=== PATIENT | male | born 1950 | race Caucasian/White ===

== ENCOUNTER → 2017-10-13 | Outpatient (CLI) | payer MEDICARE, BC ==
[2017-10-13 17:34] LABS: ALBUMIN/GLOBULIN RATIO 1.33 (1.00-1.93); ALKALINE PHOSPHATASE 62 U/L (45-117); ALT/SGPT 25 U/L (12-78); ANION GAP 8 MEQ/L (8-16); AST/SGOT 20 U/L (7-37); BILIRUBIN,TOTAL 1.2 MG/DL (0.2-1.0); BLOOD UREA NITROGEN 17 MG/DL (7-18); CALCIUM LEVEL 8.8 MG/DL (8.8-10.2); CARBON DIOXIDE LEVEL 27 MEQ/L (21-32); CHLORIDE LEVEL 106 MEQ/L (98-107); CHOLESTEROL LEVEL 252 MG/DL (<200); CHOLESTEROL RISK RATIO 4.271 (<5); CPK CREATINE PHOSPHOKINASE 195 U/L (39-308); CREATININE FOR GFR 0.86 MG/DL (0.70-1.30); GLOMERULAR FILTRATION RATE > 60.0 (>49); GLUCOSE, FASTING 100 MG/DL (70-100); HDL CHOLESTEROL 59 MG/DL (>40); LDL CHOLESTEROL 166.8 MG/DL (<100); NON-HDL-C 193 MG/DL; POTASSIUM SERUM 4.1 MEQ/L (3.5-5.1); SODIUM LEVEL 141 MEQ/L (136-145); TRIGLYCERIDES LEVEL 131 MG/DL (<150)
== END ==
LOC: M WUC 11:00
DX: E78.5 Hyperlipidemia, unspecified (principal)
CPT/HCPCS: 82550

== ENCOUNTER → 2018-01-28 | Outpatient (CLI) | payer MEDICARE, BC ==
[2018-01-28 17:09] LABS: BASO % 0.5 % (0.0-1.0); EOS # 0.2 10^3/uL (0.0-0.50); EOS % 2.4 % (0.0-3.0); HEMATOCRIT 40.1 % (42.0-52.0); HEMOGLOBIN 13.2 g/dl (13.5-17.5); IMMATURE GRANULOCYTE % 0.2 % (0-3.0); LYMPH # 1.4 10^3/uL (1.5-4.5); MEAN CORPUSCULAR HEMOGLOBIN 29.9 pg (27.0-33.0); MEAN CORPUSCULAR HGB CONC 32.9 g/dl (32.0-36.5); MEAN CORPUSCULAR VOLUME 90.7 fl (80.0-96.0); MONO # 0.7 10^3/uL (0.0-0.8); MONO % 7.9 % (0.0-5.0); NEUTROPHILS # 6.3 10^3/uL (1.8-7.7); PLATELET COUNT, AUTOMATED 248 10^3/uL (150-450); RED BLOOD COUNT 4.42 10^6/uL (4.30-6.10); RED CELL DISTRIBUTION WIDTH 13.3 % (11.5-14.5); WHITE BLOOD COUNT 8.7 10^3/uL (4.0-10.0)
[2018-01-28 18:02] LABS: ALBUMIN 3.8 GM/DL (3.2-5.2); ALBUMIN/GLOBULIN RATIO 1.15 (1.00-1.93); ALKALINE PHOSPHATASE 56 U/L (45-117); ALT/SGPT 23 U/L (12-78); ANION GAP 8 MEQ/L (8-16); AST/SGOT 18 U/L (7-37); BILIRUBIN,TOTAL 0.9 MG/DL (0.2-1.0); BLOOD UREA NITROGEN 16 MG/DL (7-18); CARBON DIOXIDE LEVEL 27 MEQ/L (21-32); CHLORIDE LEVEL 107 MEQ/L (98-107); CHOLESTEROL LEVEL 234 MG/DL (<200); CREATININE FOR GFR 1.06 MG/DL (0.70-1.30); GLOMERULAR FILTRATION RATE > 60.0 (>49); GLUCOSE, FASTING 89 MG/DL (70-100); HDL CHOLESTEROL 52 MG/DL (>40); LDL CHOLESTEROL 154.2 MG/DL (<100); NON-HDL-C 182 MG/DL; POTASSIUM SERUM 4.3 MEQ/L (3.5-5.1); SODIUM LEVEL 142 MEQ/L (136-145); TOTAL PROTEIN 7.1 GM/DL (6.4-8.2); TRIGLYCERIDES LEVEL 139 MG/DL (<150)
== END ==
LOC: M WUC 11:40
DX: N18.2 Chronic kidney disease, stage 2 (mild) (principal); I12.9 Hypertensive chronic kidney disease with stage 1 through stage 4 chronic kidney disease, or unspecified chronic kidney disease; E78.5 Hyperlipidemia, unspecified
CPT/HCPCS: 84443

== ENCOUNTER → 2018-03-14 | Outpatient (CLI) | payer MEDICARE, BC ==
[2018-03-14 12:24] LABS: BASO # 0.1 10^3/uL (0.0-0.2); BASO % 0.8 % (0.0-1.0); EOS # 0.2 10^3/uL (0.0-0.50); EOS % 3.2 % (0.0-3.0); HEMATOCRIT 43.6 % (42.0-52.0); HEMOGLOBIN 14.2 g/dl (13.5-17.5); IMMATURE GRANULOCYTE % 0.3 % (0-3.0); LYMPH # 1.4 10^3/uL (1.5-4.5); LYMPH % 19.3 % (24.0-44.0); MEAN CORPUSCULAR HEMOGLOBIN 29.2 pg (27.0-33.0); MEAN CORPUSCULAR HGB CONC 32.6 g/dl (32.0-36.5); MEAN CORPUSCULAR VOLUME 89.5 fl (80.0-96.0); MONO # 0.6 10^3/uL (0.0-0.8); MONO % 7.8 % (0.0-5.0); NEUTROPHILS # 5.1 10^3/uL (1.8-7.7); NEUTROPHILS % 68.6 % (36.0-66.0); PLATELET COUNT, AUTOMATED 272 10^3/uL (150-450); RED BLOOD COUNT 4.87 10^6/uL (4.30-6.10); RED CELL DISTRIBUTION WIDTH 12.9 % (11.5-14.5); WHITE BLOOD COUNT 7.5 10^3/uL (4.0-10.0)
[2018-03-14 14:43] LABS: ALBUMIN 4.1 GM/DL (3.2-5.2); ALBUMIN/GLOBULIN RATIO 1.21 (1.00-1.93); ALKALINE PHOSPHATASE 55 U/L (45-117); ALT/SGPT 23 U/L (12-78); ANION GAP 10 MEQ/L (8-16); AST/SGOT 15 U/L (7-37); BILIRUBIN,TOTAL 0.8 MG/DL (0.2-1.0); BLOOD UREA NITROGEN 20 MG/DL (7-18); CALCIUM LEVEL 8.9 MG/DL (8.8-10.2); CARBON DIOXIDE LEVEL 26 MEQ/L (21-32); CHLORIDE LEVEL 105 MEQ/L (98-107); CHOLESTEROL LEVEL 248 MG/DL (<200); CREATININE FOR GFR 0.94 MG/DL (0.70-1.30); GLOMERULAR FILTRATION RATE > 60.0 (>49); GLUCOSE, FASTING 111 MG/DL (70-100); HDL CHOLESTEROL 57 MG/DL (>40); LDL CHOLESTEROL 171 MG/DL (<100); NON-HDL-C 191 MG/DL; POTASSIUM SERUM 4.2 MEQ/L (3.5-5.1); SODIUM LEVEL 141 MEQ/L (136-145); TOTAL PROTEIN 7.5 GM/DL (6.4-8.2); TRIGLYCERIDES LEVEL 101 MG/DL (<150)
== END ==
LOC: M WUC 10:06
DX: Z00.00 Encounter for general adult medical examination without abnormal findings (principal); I10 Essential (primary) hypertension; E78.5 Hyperlipidemia, unspecified
CPT/HCPCS: 84443

== ENCOUNTER → 2018-10-01 | Outpatient (REF) | payer MEDICARE, BC ==
[2018-10-01 17:13] LABS: ALBUMIN 4.2 GM/DL (3.2-5.2); ALT/SGPT 27 U/L (12-78); BILIRUBIN,TOTAL 0.7 MG/DL (0.2-1.0); BLOOD UREA NITROGEN 23 MG/DL (7-18); CALCIUM LEVEL 9.6 MG/DL (8.8-10.2); CARBON DIOXIDE LEVEL 27 MEQ/L (21-32); CHLORIDE LEVEL 106 MEQ/L (98-107); CHOLESTEROL LEVEL 235 MG/DL (<200); CHOLESTEROL RISK RATIO 3.405 (<5); GLOMERULAR FILTRATION RATE > 60.0 (>49); GLUCOSE, FASTING 89 MG/DL (70-100); HDL CHOLESTEROL 69 MG/DL (>40); LDL CHOLESTEROL 141 MG/DL (<100); NON-HDL-C 166 MG/DL; POTASSIUM SERUM 3.9 MEQ/L (3.5-5.1); SODIUM LEVEL 139 MEQ/L (136-145); TOTAL PROTEIN 7.4 GM/DL (6.4-8.2); TRIGLYCERIDES LEVEL 125 MG/DL (<150)
[2018-10-01 17:19] LABS: BASO # 0.1 10^3/uL (0.0-0.2); BASO % 0.9 % (0.0-1.0); EOS # 0.4 10^3/uL (0.0-0.50); EOS % 5.8 % (0.0-3.0); HEMATOCRIT 41.4 % (42.0-52.0); HEMOGLOBIN 13.3 g/dl (13.5-17.5); LYMPH # 1.7 10^3/uL (1.5-4.5); MEAN CORPUSCULAR HEMOGLOBIN 28.8 pg (27.0-33.0); MEAN CORPUSCULAR HGB CONC 32.1 g/dl (32.0-36.5); MEAN CORPUSCULAR VOLUME 89.6 fl (80.0-96.0); MONO # 0.6 10^3/uL (0.0-0.8); MONO % 8.1 % (0.0-5.0); NEUTROPHILS # 4.6 10^3/uL (1.8-7.7); NEUTROPHILS % 62.1 % (36.0-66.0); PLATELET COUNT, AUTOMATED 247 10^3/uL (150-450); RED BLOOD COUNT 4.62 10^6/uL (4.30-6.10); WHITE BLOOD COUNT 7.4 10^3/uL (4.0-10.0)
== END ==
LOC: M LABDRWAD 16:06
PROVIDERS: ATTEND Nurse Practitioner Family
DX: E78.5 Hyperlipidemia, unspecified (principal)

== ENCOUNTER → 2018-12-05 | Outpatient (REF) | payer MEDICARE, BC ==
[2018-12-05 14:04] LABS: BASO # 0.1 10^3/uL (0.0-0.2); BASO % 0.7 % (0.0-1.0); EOS # 0.1 10^3/uL (0.0-0.50); EOS % 1.7 % (0.0-3.0); HEMATOCRIT 41.2 % (42.0-52.0); HEMOGLOBIN 13.4 g/dl (13.5-17.5); LYMPH # 1.8 10^3/uL (1.5-4.5); LYMPH % 23.9 % (24.0-44.0); MEAN CORPUSCULAR HEMOGLOBIN 29.3 pg (27.0-33.0); MEAN CORPUSCULAR HGB CONC 32.5 g/dl (32.0-36.5); MEAN CORPUSCULAR VOLUME 90.2 fl (80.0-96.0); MONO # 0.5 10^3/uL (0.0-0.8); MONO % 6.5 % (0.0-5.0); NEUTROPHILS # 5.1 10^3/uL (1.8-7.7); NEUTROPHILS % 66.9 % (36.0-66.0); PLATELET COUNT, AUTOMATED 225 10^3/uL (150-450); RED BLOOD COUNT 4.57 10^6/uL (4.30-6.10); WHITE BLOOD COUNT 7.6 10^3/uL (4.0-10.0)
[2018-12-05 14:29] LABS: ERYTHROCYTE SEDIMENTATION RATE 6 mm/hr (0-20)
[2018-12-05 14:42] LABS: ALT/SGPT 33 U/L (12-78); BILIRUBIN,TOTAL 0.9 MG/DL (0.2-1.0); BLOOD UREA NITROGEN 21 MG/DL (7-18); CALCIUM LEVEL 8.9 MG/DL (8.8-10.2); CARBON DIOXIDE LEVEL 26 MEQ/L (21-32); CHLORIDE LEVEL 107 MEQ/L (98-107); CREATININE FOR GFR 0.95 MG/DL (0.70-1.30); FOLATE 21.1 NG/ML; FREE T4 1.07 NG/DL (0.76-1.46); GLOMERULAR FILTRATION RATE > 60.0 (>49); GLUCOSE, FASTING 106 MG/DL (70-100); POTASSIUM SERUM 3.7 MEQ/L (3.5-5.1); RHEUMATOID FACTOR QUANT < 10.0 IU/ML (<15.0); SODIUM LEVEL 140 MEQ/L (136-145); TOTAL PROTEIN 7.4 GM/DL (6.4-8.2); VITAMIN B12 LEVEL 290 PG/ML
[2018-12-10 00:06] LABS: ANTINUCLEAR ANTIBODIES DIRECT Negative (Negative); VITAMIN B1 LEVEL WHOLE BLOOD 156.7 nmol/L (66.5-200.0); VITAMIN B6,PYRIDOXAL PHOSPHATE 11.1 ug/L (5.3-46.7); VITAMIN E(ALPHA TOCOPHEROL) 14.8 mg/L (9.0-29.0); VITAMIN E(GAMMA TOCOPHEROL) 1.7 mg/L (0.5-4.9)
== END ==
LOC: M LABNEURO 09:54
PROVIDERS: ATTEND Psychiatry & Neurology Neurology
DX: Z11.3 Encounter for screening for infections with a predominantly sexual mode of transmission (principal); E07.9 Disorder of thyroid, unspecified; F03.90 Unspecified dementia, unspecified severity, without behavioral disturbance, psychotic disturbance, mood disturbance, and anxiety

== ENCOUNTER → 2019-12-08 | Outpatient (REF) | payer MEDICARE, BC ==
[2019-12-08 16:24] LABS: BLOOD UREA NITROGEN 21 MG/DL (7-18); CALCIUM LEVEL 9.5 MG/DL (8.8-10.2); CARBON DIOXIDE LEVEL 29 MEQ/L (21-32); CHLORIDE LEVEL 105 MEQ/L (98-107); CHOLESTEROL LEVEL 250 MG/DL (<200); CHOLESTEROL RISK RATIO 4.032 (<5); CREATININE FOR GFR 1.14 MG/DL (0.70-1.30); GLOMERULAR FILTRATION RATE > 60.0 (>49); GLUCOSE, FASTING 95 MG/DL (70-100); HDL CHOLESTEROL 62 MG/DL (>40); LDL CHOLESTEROL 156 MG/DL (<100); NON-HDL-C 188 MG/DL; POTASSIUM SERUM 3.9 MEQ/L (3.5-5.1); SODIUM LEVEL 140 MEQ/L (136-145); TRIGLYCERIDES LEVEL 158 MG/DL (<150)
[2019-12-08 17:12] LABS: HEPATITIS C VIRUS ABY INDEX 0.2 INDEX (<0.8)
[2019-12-08 17:35] LABS: HEMOGLOBIN A1c 5.4 %
== END ==
LOC: M SFHCPLAZ 13:31
PROVIDERS: ATTEND Family Medicine
DX: E78.5 Hyperlipidemia, unspecified (principal); Z11.59 Encounter for screening for other viral diseases; Z13.1 Encounter for screening for diabetes mellitus; Z79.899 Other long term (current) drug therapy; Z23 Encounter for immunization

== ENCOUNTER → 2020-01-26 | Outpatient (CLI) | payer MEDICARE, BC ==
[~2020-01-26] MED LIST: AMLO1TAB25 PO; CARB25TA18 PO; DONE10TA90 PO; LISI10TA15 PO; ROSU20TA5 PO
--- NOTE | 2020-03-16 08:57 | REP ---
ABDOMINAL AORTA SCREENING ULTRASOUND FOR ANEURYSMDJelay ion reporting results from hospital computer malfunction from malware / ransomeware. COMPARISON: None available. FINDINGS: The proximal aorta measures 2.8 x 2.0 cm. The renal artery level aorta measures 2.1 x 2.0 cm. Mid-aorta measures 2.0 x 1.7 cm. Distal aorta above the bifurcation measures 1.6 x 1.7 cm. Right common iliac artery measures 1.1 x 1.4 cm. Left common iliac artery measures 1.2 x 1.3 cm. IMPRESSION: These measurements are normal. There is no abdominal aortic aneurysm. MTDD
== END ==
LOC: M WHC 05:30
PROVIDERS: ATTEND Internal Medicine
DX: Z13.6 Encounter for screening for cardiovascular disorders (principal)

== ENCOUNTER → 2020-05-05 | Outpatient (CLI) | payer MEDICARE, BC | LOC: M LABSMTC 10:37 | PROVIDERS: ATTEND Anesthesiology | DX: Z01.812 Encounter for preprocedural laboratory examination (principal); Z20.828 Contact with and (suspected) exposure to other viral communicable diseases ==

== ENCOUNTER → 2020-05-31 | Outpatient (REF) | payer MEDICARE, BC ==
[2020-05-31 19:09] LABS: FOLATE 16.7 NG/ML
== END ==
LOC: M LABDRWAD 16:28
PROVIDERS: ATTEND Psychiatry & Neurology Neurology
DX: E53.8 Deficiency of other specified B group vitamins (principal)

== ENCOUNTER → 2021-04-04 | Outpatient (CLI) | payer MEDICARE, BC | LOC: M LABSMTC 10:13 | PROVIDERS: ATTEND Anesthesiology | DX: Z01.812 Encounter for preprocedural laboratory examination (principal); Z20.822 Contact with and (suspected) exposure to COVID-19 ==

== ENCOUNTER 2021-04-08 08:12 | Day surgery (SDC) | payer MEDICARE, BC ==
[~2021-04-08] VITALS: Ht 185.4 cm; Wt 86.2 kg
[~2021-04-08 08:12] MED LIST changes: +NS 1,000 ML IV ONE
[2021-04-08] MEDS ORDERED: LIDOCAINE 2% 100MG/5ML SDV (FOR ANES.) As Ordered ONE (09:20)
[2021-04-08] MEDS ORDERED: propofoL 200 MG/20 ML VIAL As Ordered ONE (09:20)
[2021-04-08] MEDS ORDERED: ePHEDrine SULFATE 25 MG/5 ML(5MG/ML) SYRINGE As Ordered ONE (10:12)
--- NOTE | 2021-04-08 10:30 | ROOR ---
Patient Name: Floyd Curtis Procedure Date: 04/08/2021 9:37 AM Date of : 1950 Age: 70 Room: [facility] Gender: Male Note Status: Finalized Procedure: Colonoscopy Indications: High risk colon cancer surveillance: Personal history of colonic polyps Providers: Gregorio Howard MD Referring MD: Celia Harrington Md Requesting Provider: Medicines: Monitored Anesthesia Care Complications: No immediate complications. Procedure: Pre-Anesthesia Assessment: - Prior to the procedure, a History and Physical was performed, and patient medications and allergies were reviewed. The patient is competent. The risks and benefits of the procedure and the sedation options and risks were discussed with the patient. All questions were answered and informed consent was obtained. Patient identification and proposed procedure were verified by the physician, the nurse and the anesthesiologist in the procedure room. Mental Status Examination: alert and oriented. Airway Examination: normal oropharyngeal airway and neck mobility. Respiratory Examination: clear to auscultation. CV Examination: normal. Prophylactic Antibiotics: The patient does not require prophylactic antibiotics. Prior Anticoagulants: The patient has taken no previous anticoagulant or antiplatelet agents. ASA Grade Assessment: III - A patient with severe systemic disease. After reviewing the risks and benefits, the patient was deemed in satisfactory condition to undergo the procedure. The anesthesia plan was to use monitored anesthesia care (MAC). Immediately prior to administration of medications, the patient was re-assessed for adequacy to receive sedatives. The heart rate, respiratory rate, oxygen saturations, blood pressure, adequacy of pulmonary ventilation, and response to care were monitored throughout the procedure. The physical status of the patient was re-assessed after the procedure. The Colonoscope was introduced through the anus and advanced to the terminal ileum, with identification of the appendiceal orifice and IC valve. The colonoscopy was performed without difficulty. The patient tolerated the procedure well. The quality of the bowel preparation was good. The terminal ileum, ileocecal valve, appendiceal orifice, and rectum were photographed. Scope insertion time was 2 minutes. Scope withdrawal time was 10 minutes. The total duration of the procedure was 12 minutes. Findings: The perianal and digital rectal examinations were normal. The terminal ileum appeared normal. Eight sessile polyps were found in the recto-sigmoid colon, transverse colon and ascending colon. The polyps were 3 to 8 mm in size. These polyps were removed with a cold snare. Resection and retrieval were complete. Verification of patient identification for the specimen was done by the physician and nurse using the patient's name, date and medical record number. Estimated blood loss was minimal. Multiple small and large-mouthed diverticula were found from sigmoid to descending colon. There was no evidence of diverticular bleeding. Non-bleeding external and internal hemorrhoids were found during retroflexion. The hemorrhoids were medium-sized. Impression: - The examined portion of the ileum was normal. - Eight 3 to 8 mm polyps at the recto-sigmoid colon, in the transverse colon and in the ascending colon, removed with a cold snare. Resected and retrieved. - Moderate diverticulosis from sigmoid to descending colon. There was no evidence of diverticular bleeding. - Non-bleeding external and internal hemorrhoids. Recommendation: - Patient has a contact number available for emergencies. The signs and symptoms of potential delayed complications were discussed with the patient. Return to normal activities tomorrow. Written discharge instructions were provided to the patient. - High fiber diet. - Continue present medications. - Use fiber, for example Citrucel, Fibercon, Konsyl or Metamucil. - Await pathology results. - Repeat colonoscopy in 3 - 5 years for surveillance based on pathology results. - Telephone GI clinic for pathology results in 2 weeks. - Return to primary care physician. Procedure Code(s): --- Professional --- 94851, Colonoscopy, flexible; with removal of tumor(s), polyp(s), or other lesion(s) by snare technique Diagnosis Code(s): --- Professional --- Z86.010, Personal history of colonic polyps K64.8, Other hemorrhoids K63.5, Polyp of colon K57.30, Diverticulosis of large intestine without perforation or abscess without bleeding CPT copyright 2019 [employer]. All rights reserved. The codes documented in this report are preliminary and upon junk dealer review may be revised to meet current compliance requirements. Gregorio Howard MD Gregorio Howard MD 04/08/2021 10:30:29 AM Electronically signed by Gregorio Howard MD Number of Addenda: 0 Note Initiated On: 04/08/2021 9:37 AM Estimated Blood Loss: Estimated blood loss was minimal.
[2021-04-08 10:40] VITALS: BP 143/82
== END 2021-04-08 11:00 | disposition home or self-care (01) ==
LOC: M OPP 08:12
PROVIDERS: ATTEND Internal Medicine Gastroenterology
DX: Z12.11 Encounter for screening for malignant neoplasm of colon (principal); Z86.010 Personal history of colon polyps; D12.6 Benign neoplasm of colon, unspecified; K57.30 Diverticulosis of large intestine without perforation or abscess without bleeding; K64.8 Other hemorrhoids; Z79.899 Other long term (current) drug therapy; Z80.3 Family history of malignant neoplasm of breast

== ENCOUNTER 2021-10-08 14:52 | Emergency (ER) | payer MEDICARE, BC ==
[~2021-10-08 14:52] MED LIST changes: -LISI10TA15 PO; +LISI10TA24 PO; -NS 1,000 ML IV ONE
[2021-10-08] MEDS ORDERED: ACETAMINOPHEN TAB 650MG DOSE (2X325MG) PO ONE (15:05)
[2021-10-08 15:42] LABS: BASO % 0.2 % (0.0-1.0); HEMATOCRIT 45.9 % (42.0-52.0); HEMOGLOBIN 15.2 g/dl (13.5-17.5); LYMPH # 0.7 10^3/uL (1.5-5.0); LYMPH % 8.1 % (24.0-44.0); MEAN CORPUSCULAR HEMOGLOBIN 30.5 pg (27.0-33.0); MEAN CORPUSCULAR HGB CONC 33.1 g/dl (32.0-36.5); MONO # 0.9 10^3/uL (0.0-0.8); MONO % 10.9 % (2.0-8.0); NEUTROPHILS # 6.6 10^3/uL (1.5-8.5); NEUTROPHILS % 80.4 % (36.0-66.0); PLATELET COUNT, AUTOMATED 166 10^3/uL (150-450); RED BLOOD COUNT 4.99 10^6/uL (4.30-6.10); WHITE BLOOD COUNT 8.2 10^3/uL (4.0-10.0)
[2021-10-08 16:01] VITALS: BP 132/63
[2021-10-08 16:08] LABS: ALBUMIN 4.2 GM/DL (3.2-5.2); ALT/SGPT 47 U/L (12-78); BILIRUBIN,TOTAL 1.6 MG/DL (0.2-1.0); BLOOD UREA NITROGEN 14 MG/DL (7-18); C REACTIVE PROTEIN QUANTITATIV 2.48 MG/DL (0.00-0.30); CALCIUM LEVEL 8.9 MG/DL (8.8-10.2); CARBON DIOXIDE LEVEL 30 MEQ/L (21-32); CHLORIDE LEVEL 101 MEQ/L (98-107); CREATININE FOR GFR 0.99 MG/DL (0.70-1.30); FERRITIN 536 NG/ML (26-388); GLOMERULAR FILTRATION RATE > 60.0 (>42); GLUCOSE, FASTING 93 MG/DL (70-100); LDH LACTATE DEHYDROGENASE 217 U/L (87-241); POTASSIUM SERUM 3.7 MEQ/L (3.5-5.1); SODIUM LEVEL 138 MEQ/L (136-145); TOTAL PROTEIN 7.4 GM/DL (6.4-8.2)
== END 2021-10-08 17:51 | disposition home or self-care (01) ==
LOC: M ED 14:52 → EDBD 14:52 → M ED 17:51
DX: R50.9 Fever, unspecified (principal); I07.1 Rheumatic tricuspid insufficiency; I10 Essential (primary) hypertension; E78.5 Hyperlipidemia, unspecified; F03.90 Unspecified dementia, unspecified severity, without behavioral disturbance, psychotic disturbance, mood disturbance, and anxiety; G20 Parkinson's disease; J30.89 Other allergic rhinitis; Z79.899 Other long term (current) drug therapy

== ENCOUNTER 2021-10-10 14:06 | Outpatient (CLI) | payer MEDICARE, BC ==
[~2021-10-10 14:06] MED LIST changes: +ACETAMINOPHEN TAB 650MG DOSE (2X325MG) PO PRN; +ALBUTEROL 90 MCG/ACT 8GM HFA INHALER INH PRN; +ALBUTEROL SULFATE 2.5 MG/0.5 ML INH NEB SOLN INH PRN; +BEBTELOVIMAB 175MG 2ML VIAL (EUA) IV ONE; +EPINEPHrine INJ 1 MG/ML 1ML AMP IM PRN; +NS 1,000 ML IV SCH; +diphenhydrAMINE 50MG/ML VIAL (J1200) IV PRN; +methylPREDNISolone 125MG 2ML VIAL IV PRN
[2021-10-10 15:00] VITALS: BP 134/68
[2021-10-10 16:00] VITALS: BP 134/83
== END 2021-10-10 16:10 | disposition home or self-care (01) ==
LOC: M OPCLI4PR 14:06 → M ED INP 14:16 → M 4MAIN 15:03 → M OPCLI4PR 16:10
PROVIDERS: ATTEND Internal Medicine
DX: U07.1 COVID-19 (principal)

== ENCOUNTER → 2021-12-02 | Outpatient (CLI) | payer MEDICARE, BC ==
[~2021-12-02] MED LIST changes: -ACETAMINOPHEN TAB 650MG DOSE (2X325MG) PO PRN; -ALBUTEROL 90 MCG/ACT 8GM HFA INHALER INH PRN; -ALBUTEROL SULFATE 2.5 MG/0.5 ML INH NEB SOLN INH PRN; -BEBTELOVIMAB 175MG 2ML VIAL (EUA) IV ONE; -EPINEPHrine INJ 1 MG/ML 1ML AMP IM PRN; -NS 1,000 ML IV SCH; -diphenhydrAMINE 50MG/ML VIAL (J1200) IV PRN; -methylPREDNISolone 125MG 2ML VIAL IV PRN
[2021-12-02 14:08] LABS: BLOOD UREA NITROGEN 15 MG/DL (7-18); CALCIUM LEVEL 9.8 MG/DL (8.8-10.2); CARBON DIOXIDE LEVEL 28 MEQ/L (21-32); CHLORIDE LEVEL 106 MEQ/L (98-107); CHOLESTEROL LEVEL 189 MG/DL (<200); CHOLESTEROL RISK RATIO 2.589 (<5); CREATININE FOR GFR 0.83 MG/DL (0.70-1.30); GLOMERULAR FILTRATION RATE > 60.0 (>42); GLUCOSE, FASTING 91 MG/DL (70-100); HDL CHOLESTEROL 73 MG/DL (>40); LDL CHOLESTEROL 90 MG/DL (<100); NON-HDL-C 116 MG/DL; POTASSIUM SERUM 3.8 MEQ/L (3.5-5.1); SODIUM LEVEL 141 MEQ/L (136-145); TRIGLYCERIDES LEVEL 129 MG/DL (<150)
[2021-12-02 16:04] LABS: HEMOGLOBIN A1c 5.3 %
== END ==
LOC: M PLALAB 10:04
PROVIDERS: ATTEND Student in an Organized Health Care Education/Training Program
DX: E78.5 Hyperlipidemia, unspecified (principal); I10 Essential (primary) hypertension; Z79.899 Other long term (current) drug therapy

== ENCOUNTER → 2022-02-22 | Outpatient (CLI) | payer MEDICARE, BC | LOC: M PLAIMG 10:03 | PROVIDERS: ATTEND Psychiatry & Neurology Neurology | DX: I63.9 Cerebral infarction, unspecified (principal); R26.81 Unsteadiness on feet; U09.9 Post COVID-19 condition, unspecified ==

== ENCOUNTER → 2023-03-02 | Outpatient (CLI) | payer MEDICARE, BC ==
[~2023-03-02] MED LIST changes: -ROSU20TA5 PO; +ROSU20TA61 PO
== END ==
LOC: M RAD 11:41
PROVIDERS: ATTEND Student in an Organized Health Care Education/Training Program
DX: R39.198 Other difficulties with micturition (principal)

== ENCOUNTER → 2023-03-06 | Outpatient (CLI) | payer MEDICARE, BC | LOC: M WHC 06:35 | PROVIDERS: ATTEND Student in an Organized Health Care Education/Training Program | DX: Z53.9 Procedure and treatment not carried out, unspecified reason (principal) ==

== ENCOUNTER → 2023-04-05 | Outpatient (CLI) | payer MEDICARE, BC | LOC: M PLAIMG 08:59 | PROVIDERS: ATTEND Student in an Organized Health Care Education/Training Program | DX: R63.4 Abnormal weight loss (principal); N20.0 Calculus of kidney; N13.30 Unspecified hydronephrosis ==

== ENCOUNTER → 2023-04-05 | Outpatient (CLI) | payer MEDICARE, BC | LOC: M WHC 09:14 | PROVIDERS: ATTEND Student in an Organized Health Care Education/Training Program | DX: R63.4 Abnormal weight loss (principal) ==

== ENCOUNTER 2023-05-20 17:57 | Inpatient (IN) | payer MEDICARE, BC ==
[~2023-05-20] VITALS: Ht 185.4 cm; Wt 68.2 kg
[2023-05-20 20:08] LABS: BASO % 0.2 % (0.0-1.0); EOS % 0.1 % (0.0-3.0); HEMATOCRIT 37.1 % (42.0-52.0); HEMOGLOBIN 12.6 g/dl (13.5-17.5); LYMPH # 0.6 10^3/uL (1.5-5.0); LYMPH % 6.2 % (24.0-44.0); MEAN CORPUSCULAR HEMOGLOBIN 30.4 pg (27.0-33.0); MEAN CORPUSCULAR VOLUME 89.6 fl (80.0-96.0); MONO # 0.7 10^3/uL (0.0-0.8); MONO % 7.8 % (2.0-8.0); NEUTROPHILS # 7.7 10^3/uL (1.5-8.5); NEUTROPHILS % 85.5 % (36.0-66.0); PLATELET COUNT, AUTOMATED 159 10^3/uL (150-450); RED BLOOD COUNT 4.14 10^6/uL (4.30-6.10)
[2023-05-20 20:31] LABS: CK-MB VALUE MASS 6.4 NG/ML (<3.6)
[2023-05-20 20:33] LABS: BLOOD UREA NITROGEN 17 MG/DL (9-23); CALCIUM LEVEL 8.5 MG/DL (8.3-10.6); CARBON DIOXIDE LEVEL 23 MMOL/L (20-31); CHLORIDE LEVEL 102 MMOL/L (98-107); CPK CREATINE PHOSPHOKINASE 828 U/L (46-171); CREATININE FOR GFR 0.79 MG/DL (0.70-1.30); GLOMERULAR FILTRATION RATE > 60.0 (>42); GLUCOSE, FASTING 103 MG/DL (74-106); MB/CK RELATIVE INDEX 0.77 (< OR =4); POTASSIUM SERUM 3.3 MMOL/L (3.5-5.1); SODIUM LEVEL 138 MMOL/L (136-145)
[2023-05-20 20:35] VITALS: BP 118/64; TEMP 97.4; O2SAT 99
[2023-05-20 20:42] LABS: RSV AMPLIFICATION NEGATIVE (NEGATIVE)
[2023-05-20] MEDS ORDERED: ISOVUE-370 76% 100ML VIAL As Ordered ONE (20:44)
[2023-05-20 20:50] VITALS: BP 118/64; TEMP 97.4; O2SAT 99
[2023-05-20] MEDS ORDERED: POTASSIUM CHLORIDE 10MEQ SR TABLET PO ONE (22:25)
[2023-05-20] MEDS ORDERED: ASPIRIN 81MG CHEW TABLET PO ONE (23:15)
[2023-05-21] VITALS (9 sets, daily range): BP systolic 109–144; BP diastolic 55–71; TEMP 97.5–99; O2SAT 95–97
[2023-05-21 07:54] LABS: BASO % 0.3 % (0.0-1.0); HEMATOCRIT 39.2 % (42.0-52.0); HEMOGLOBIN 13.4 g/dl (13.5-17.5); LYMPH # 0.8 10^3/uL (1.5-5.0); LYMPH % 9.2 % (24.0-44.0); MEAN CORPUSCULAR HEMOGLOBIN 30.4 pg (27.0-33.0); MEAN CORPUSCULAR HGB CONC 34.2 g/dl (32.0-36.5); MEAN CORPUSCULAR VOLUME 88.9 fl (80.0-96.0); MONO # 0.7 10^3/uL (0.0-0.8); MONO % 8.2 % (2.0-8.0); NEUTROPHILS # 7.4 10^3/uL (1.5-8.5); NEUTROPHILS % 82.1 % (36.0-66.0); PLATELET COUNT, AUTOMATED 162 10^3/uL (150-450); RED BLOOD COUNT 4.41 10^6/uL (4.30-6.10)
[2023-05-21 08:17] LABS: BLOOD UREA NITROGEN 12 MG/DL (9-23); CALCIUM LEVEL 8.7 MG/DL (8.3-10.6); CARBON DIOXIDE LEVEL 26 MMOL/L (20-31); CHLORIDE LEVEL 101 MMOL/L (98-107); CREATININE FOR GFR 0.71 MG/DL (0.70-1.30); GLOMERULAR FILTRATION RATE > 60.0 (>42); GLUCOSE, FASTING 96 MG/DL (74-106); POTASSIUM SERUM 3.3 MMOL/L (3.5-5.1); SODIUM LEVEL 137 MMOL/L (136-145)
[2023-05-21] MEDS ORDERED: CARB25TA9 PO (08:31)
[2023-05-21] MEDS ORDERED: FLUT05CR TOP (08:31)
[2023-05-21] MEDS ORDERED: MEMA10TA19 PO (08:31)
[2023-05-21] MEDS ORDERED: LISI20TA35 PO (08:31)
[2023-05-21] MEDS ORDERED: ROSU40TA4 PO (08:31)
[2023-05-21] MEDS ORDERED: HOME MED LIST COMPLETE! XX SCH (08:35)
[2023-05-21] MEDS: ASPIRIN 81MG CHEW TABLET PO SCH ×3 (09:00→15:31)
[2023-05-21] MEDS: ROSUVASTATIN 10 MG TAB (CRESTOR) PO SCH ×3 (09:00→15:32)
[2023-05-21] MEDS: MEMANTINE 5MG TABLET (NAMENDA) PO SCH ×3 (09:00→15:31)
[2023-05-21] MEDS: SINEMET 25-100 MG TAB PO SCH ×4 (13:00→17:22)
[2023-05-21] MEDS: ENOXAPARIN 40MG/0.4ML SYRINGE (J1650 PER 10MG) SC SCH (13:54)
[2023-05-21] MEDS: POTASSIUM CHLORIDE 10MEQ SR TABLET PO SCH (13:56)
[2023-05-21] MEDS: QUEtiapine FUMARATE 25 MG TAB PO SCH (17:21)
[2023-05-21] MEDS ORDERED: SIMVASTATIN 20 MG TAB PO SCH (21:00)
[2023-05-21] MEDS: DONEPEZIL 5 MG TAB PO SCH (21:00)
[2023-05-21] MEDS ORDERED: REMDESIVIR 200 MG in NS 250 ML IV ONE (21:00)
[2023-05-22] VITALS (8 sets, daily range): BP systolic 107–144; BP diastolic 68–85; TEMP 98.7–101.7; O2SAT 90–96
[2023-05-22 06:32] LABS: BASO % 0.2 % (0.0-1.0); HEMATOCRIT 39.9 % (42.0-52.0); HEMOGLOBIN 13.6 g/dl (13.5-17.5); LYMPH # 0.7 10^3/uL (1.5-5.0); LYMPH % 7.5 % (24.0-44.0); MEAN CORPUSCULAR HEMOGLOBIN 30.6 pg (27.0-33.0); MEAN CORPUSCULAR HGB CONC 34.1 g/dl (32.0-36.5); MEAN CORPUSCULAR VOLUME 89.7 fl (80.0-96.0); MONO # 0.8 10^3/uL (0.0-0.8); MONO % 8.9 % (2.0-8.0); NEUTROPHILS # 7.5 10^3/uL (1.5-8.5); NEUTROPHILS % 83.1 % (36.0-66.0); PLATELET COUNT, AUTOMATED 157 10^3/uL (150-450); RED BLOOD COUNT 4.45 10^6/uL (4.30-6.10); WHITE BLOOD COUNT 9.1 10^3/uL (4.0-10.0)
[2023-05-22 06:44] LABS: D-DIMER QUANT 1.02 ug/mL (<0.5)
[2023-05-22 06:54] LABS: LDH LACTATE DEHYDROGENASE 435 U/L (120-246)
[2023-05-22 06:56] LABS: ALBUMIN 3.4 G/DL (3.2-5.2); ALKALINE PHOSPHATASE 67 U/L (46-116); ALT/SGPT 75 U/L (7.0-40); AST/SGOT 355 U/L (<34); BILIRUBIN,DIRECT 0.8 MG/DL (<0.4); BILIRUBIN,TOTAL 2.1 MG/DL (0.3-1.2); BLOOD UREA NITROGEN 12 MG/DL (9-23); CALCIUM LEVEL 8.6 MG/DL (8.3-10.6); CARBON DIOXIDE LEVEL 24 MMOL/L (20-31); CHLORIDE LEVEL 104 MMOL/L (98-107); CREATININE FOR GFR 0.68 MG/DL (0.70-1.30); GLOMERULAR FILTRATION RATE > 60.0 (>42); GLUCOSE, FASTING 95 MG/DL (74-106); MAGNESIUM LEVEL 2.1 MG/DL (1.8-2.4); POTASSIUM SERUM 3.4 MMOL/L (3.5-5.1); SODIUM LEVEL 140 MMOL/L (136-145); TOTAL PROTEIN 6.2 G/DL (5.7-8.2)
[2023-05-22 06:57] LABS: FERRITIN 528.3 NG/ML (10.5-307.3)
[2023-05-22 07:07] LABS: PROCALCITONIN 0.06 ng/ml
[2023-05-22] MEDS: SINEMET 25-100 MG TAB PO SCH ×5 (09:00→18:20)
[2023-05-22] MEDS: MEMANTINE 5MG TABLET (NAMENDA) PO SCH ×2 (09:00→19:55)
[2023-05-22] MEDS: POTASSIUM CHLORIDE 10MEQ SR TABLET PO SCH (09:00)
[2023-05-22] MEDS: ENOXAPARIN 40MG/0.4ML SYRINGE (J1650 PER 10MG) SC SCH (10:00)
[2023-05-22] MEDS: LR 1,000 ML IV SCH ×2 (10:10→15:21)
[2023-05-22 12:06] LABS: VENOUS BASE EXCESS 1.4 (-2.0-2.0); VENOUS HCO3 24.6 MMOL/L (23.0-27.0); VENOUS PARTIAL PRESSURE CO2 34.4 mmHg (38.0-50.0); VENOUS PH 7.472 UNITS (7.330-7.430); VENOUS STANDARD HCO3 25.8 MMOL/L; VENOUS TOTAL CO2 25.6 MMOL/L (24.0-28.0)
[2023-05-22] MEDS ORDERED: SALIVA SUBSTITUTE(MOUTHKOTE) BTL MT PRN (12:45)
[2023-05-22] MEDS ORDERED: ACETAMINOPHEN 650MG SUPP PR PRN (15:35)
[2023-05-22] MEDS: QUEtiapine FUMARATE 25 MG TAB PO SCH (15:47)
[2023-05-22 16:03] LABS: ERYTHROCYTE SEDIMENTATION RATE 41 mm/hr (0-20)
[2023-05-22 17:29] LABS: INR 1.19; PROTHROMBIN TIME 14.8 SECONDS (12.5-14.5)
[2023-05-22 17:30] LABS: PARTIAL THROMBOPLASTIN TIME 31.5 SECONDS (24.8-34.2)
[2023-05-22] MEDS: DONEPEZIL 5 MG TAB PO SCH (19:55)
[2023-05-22] MEDS ORDERED: REMDESIVIR 100 MG in NS 250 ML IV SCH (21:00)
[2023-05-22] MEDS ORDERED: ACETAMINOPHEN *IV* 1,000 MG in IV 1 EA IV ONE (22:00)
[2023-05-23] VITALS (7 sets, daily range): BP systolic 137–157; BP diastolic 69–76; TEMP 97.8–102.4; O2SAT 92–99
[2023-05-23] MEDS: LR 1,000 ML IV SCH (00:56)
[2023-05-23 06:41] LABS: BASO % 0.3 % (0.0-1.0); HEMATOCRIT 38.5 % (42.0-52.0); HEMOGLOBIN 13.1 g/dl (13.5-17.5); LYMPH # 0.9 10^3/uL (1.5-5.0); MEAN CORPUSCULAR HEMOGLOBIN 30.8 pg (27.0-33.0); MEAN CORPUSCULAR VOLUME 90.6 fl (80.0-96.0); MONO # 0.8 10^3/uL (0.0-0.8); MONO % 11.8 % (2.0-8.0); NEUTROPHILS # 5.2 10^3/uL (1.5-8.5); NEUTROPHILS % 74.8 % (36.0-66.0); PLATELET COUNT, AUTOMATED 154 10^3/uL (150-450); RED BLOOD COUNT 4.25 10^6/uL (4.30-6.10); WHITE BLOOD COUNT 6.9 10^3/uL (4.0-10.0)
[2023-05-23 07:12] LABS: BLOOD UREA NITROGEN 14 MG/DL (9-23); CALCIUM LEVEL 8.3 MG/DL (8.3-10.6); CARBON DIOXIDE LEVEL 26 MMOL/L (20-31); CHLORIDE LEVEL 104 MMOL/L (98-107); CREATININE FOR GFR 0.65 MG/DL (0.70-1.30); GLOMERULAR FILTRATION RATE > 60.0 (>42); GLUCOSE, FASTING 94 MG/DL (74-106); POTASSIUM SERUM 3.1 MMOL/L (3.5-5.1); SODIUM LEVEL 142 MMOL/L (136-145)
[2023-05-23 07:25] LABS: CPK CREATINE PHOSPHOKINASE 6239 U/L (46-171)
[2023-05-23 07:55] LABS: ALBUMIN 2.9 G/DL (3.2-5.2); ALKALINE PHOSPHATASE 59 U/L (46-116); ALT/SGPT 71 U/L (7.0-40); AST/SGOT 255 U/L (<34); BILIRUBIN,TOTAL 2.5 MG/DL (0.3-1.2); TOTAL PROTEIN 5.7 G/DL (5.7-8.2)
[2023-05-23] MEDS: SINEMET 25-100 MG TAB PO SCH ×3 (08:54→17:35)
[2023-05-23] MEDS: KCL 10MEQ/100ML SWI (KRUN) 10 MEQ in IV 1 EA IV SCH ×4 (08:55→13:30)
[2023-05-23 11:20] LABS: APPEARANCE, CSF CLEAR (CLEAR); COLOR, CSF COLORLESS (COLORLESS); CSF TUBE# CELL CNT TUBE 1
[2023-05-23 12:08] LABS: CSF TUBE# TP TUBE 2; TOTAL PROTEIN,CSF 38.7 MG/DL (15-45)
[2023-05-23 12:10] LABS: CSF TUBE# GLU TUBE 2
[2023-05-23] MEDS ORDERED: KETOROLAC 30 MG/ML 1ML VIAL IV ONE (12:35)
[2023-05-23] MEDS ORDERED: LR 1,000 ML IV SCH (12:40)
[2023-05-23 13:40] LABS: HEPATITIS B CORE ANTIBODY IGM NEGATIVE (NEGATIVE); HEPATITIS C VIRUS ABY INDEX 0.02 INDEX (<0.8)
[2023-05-23] MEDS: PIPERACILLIN/TAZOBACTAM SOD 3.375 GM in D5W MINI-BAG PLUS 50 ML IV SCH ×2 (13:59→21:43)
[2023-05-23] MEDS ORDERED: ACYCLOVIR IV SCH (14:00)
[2023-05-23] MEDS ORDERED: D5W IV SCH (14:00)
[2023-05-23] MEDS: D5W/LR 1,000 ML IV SCH (21:42)
[2023-05-23] MEDS: ENOXAPARIN 40MG/0.4ML SYRINGE (J1650 PER 10MG) SC SCH (21:43)
[2023-05-23] MEDS: SODIUM CHLORIDE NASAL 0.65% SPRAY BTL (OCEAN) SCH (21:44)
[2023-05-23] MEDS: THIAMINE INJection 500 MG in NS 100 ML IV SCH (23:08)
[2023-05-24] VITALS (20 sets, daily range): BP systolic 133–166; BP diastolic 63–77; TEMP 97.6–98.4; O2SAT 92–97
[2023-05-24] MEDS: PIPERACILLIN/TAZOBACTAM SOD 3.375 GM in D5W MINI-BAG PLUS 50 ML IV SCH ×4 (02:43→21:40)
[2023-05-24] MEDS: D5W/LR 1,000 ML IV SCH ×2 (06:12→18:55)
[2023-05-24] MEDS: THIAMINE INJection 500 MG in NS 100 ML IV SCH ×3 (06:12→22:00)
[2023-05-24] MEDS: SODIUM CHLORIDE NASAL 0.65% SPRAY BTL (OCEAN) SCH ×3 (08:33→21:40)
[2023-05-24 08:36] LABS: BASO % 0.2 % (0.0-1.0); HEMOGLOBIN 12.8 g/dl (13.5-17.5); LYMPH # 0.7 10^3/uL (1.5-5.0); LYMPH % 10.6 % (24.0-44.0); MEAN CORPUSCULAR HEMOGLOBIN 30.6 pg (27.0-33.0); MEAN CORPUSCULAR HGB CONC 34.6 g/dl (32.0-36.5); MEAN CORPUSCULAR VOLUME 88.5 fl (80.0-96.0); MONO # 0.6 10^3/uL (0.0-0.8); MONO % 9.1 % (2.0-8.0); NEUTROPHILS % 79.9 % (36.0-66.0); PLATELET COUNT, AUTOMATED 164 10^3/uL (150-450); RED BLOOD COUNT 4.18 10^6/uL (4.30-6.10); WHITE BLOOD COUNT 6.2 10^3/uL (4.0-10.0)
[2023-05-24] MEDS: SINEMET 25-100 MG TAB PO SCH ×3 (08:40→17:40)
[2023-05-24 08:54] LABS: ERYTHROCYTE SEDIMENTATION RATE 45 mm/hr (0-20)
[2023-05-24] MEDS ORDERED: NIRMATRELVIR/RITONAVIR CO-PACK (EMERGENCY USE AUTH) PO SCH (09:00)
[2023-05-24 09:16] LABS: PROCALCITONIN 0.21 ng/ml
[2023-05-24 09:49] LABS: ALBUMIN 2.6 G/DL (3.2-5.2); ALKALINE PHOSPHATASE 57 U/L (46-116); ALT/SGPT 77 U/L (7.0-40); AST/SGOT 173 U/L (<34); BILIRUBIN,DIRECT 0.8 MG/DL (<0.4); BILIRUBIN,TOTAL 1.8 MG/DL (0.3-1.2); BLOOD UREA NITROGEN 14 MG/DL (9-23); CARBON DIOXIDE LEVEL 26 MMOL/L (20-31); CHLORIDE LEVEL 104 MMOL/L (98-107); CPK CREATINE PHOSPHOKINASE 2929 U/L (46-171); CREATININE FOR GFR 0.54 MG/DL (0.70-1.30); GLOMERULAR FILTRATION RATE > 60.0 (>42); GLUCOSE, FASTING 128 MG/DL (74-106); SODIUM LEVEL 139 MMOL/L (136-145); TOTAL PROTEIN 5.4 G/DL (5.7-8.2)
[2023-05-24] MEDS: KCL 10MEQ/100ML SWI (KRUN) 10 MEQ in IV 1 EA IV SCH ×4 (10:20→14:39)
[2023-05-24] MEDS ORDERED: POTASSIUM CHLORIDE 10MEQ SR TABLET PO ONE (12:00)
[2023-05-24] MEDS ORDERED: ISOVUE-370 76% 100ML VIAL As Ordered ONE (16:05)
[2023-05-24] MEDS ORDERED: REMDESIVIR 100 MG in NS 250 ML IV SCH (21:00)
[2023-05-24] MEDS: ENOXAPARIN 40MG/0.4ML SYRINGE (J1650 PER 10MG) SC SCH (22:21)
[2023-05-25] VITALS (16 sets, daily range): BP systolic 112–169; BP diastolic 58–84; TEMP 97.5–98.4; O2SAT 94–97
[2023-05-25] MEDS: D5W/LR 1,000 ML IV SCH ×3 (02:13→21:00)
[2023-05-25] MEDS: PIPERACILLIN/TAZOBACTAM SOD 3.375 GM in D5W MINI-BAG PLUS 50 ML IV SCH ×4 (02:13→20:59)
[2023-05-25] MEDS: THIAMINE INJection 500 MG in NS 100 ML IV SCH ×3 (05:55→20:58)
[2023-05-25] MEDS: SODIUM CHLORIDE NASAL 0.65% SPRAY BTL (OCEAN) SCH ×3 (08:21→21:00)
[2023-05-25] MEDS: SINEMET 25-100 MG TAB PO SCH ×3 (08:22→17:53)
[2023-05-25 08:47] LABS: HEMATOCRIT 41.1 % (42.0-52.0); HEMOGLOBIN 14.2 g/dl (13.5-17.5); LYMPH # 0.9 10^3/uL (1.5-5.0); LYMPH % 11.7 % (24.0-44.0); MEAN CORPUSCULAR HEMOGLOBIN 30.3 pg (27.0-33.0); MEAN CORPUSCULAR HGB CONC 34.5 g/dl (32.0-36.5); MEAN CORPUSCULAR VOLUME 87.8 fl (80.0-96.0); MONO # 0.6 10^3/uL (0.0-0.8); MONO % 7.2 % (2.0-8.0); NEUTROPHILS # 6.3 10^3/uL (1.5-8.5); PLATELET COUNT, AUTOMATED 216 10^3/uL (150-450); RED BLOOD COUNT 4.68 10^6/uL (4.30-6.10); WHITE BLOOD COUNT 7.8 10^3/uL (4.0-10.0)
[2023-05-25 09:42] LABS: ALBUMIN 2.9 G/DL (3.2-5.2); ALKALINE PHOSPHATASE 65 U/L (46-116); ALT/SGPT 75 U/L (7.0-40); AST/SGOT 137 U/L (<34); BILIRUBIN,DIRECT 0.7 MG/DL (<0.4); BILIRUBIN,TOTAL 1.7 MG/DL (0.3-1.2); BLOOD UREA NITROGEN 12 MG/DL (9-23); CALCIUM LEVEL 8.6 MG/DL (8.3-10.6); CARBON DIOXIDE LEVEL 27 MMOL/L (20-31); CHLORIDE LEVEL 107 MMOL/L (98-107); CPK CREATINE PHOSPHOKINASE 1649 U/L (46-171); CREATININE FOR GFR 0.67 MG/DL (0.70-1.30); GLOMERULAR FILTRATION RATE > 60.0 (>42); GLUCOSE, FASTING 121 MG/DL (74-106); POTASSIUM SERUM 3.3 MMOL/L (3.5-5.1); SODIUM LEVEL 144 MMOL/L (136-145); TOTAL PROTEIN 5.9 G/DL (5.7-8.2)
[2023-05-25] MEDS: MEMANTINE 5MG TABLET (NAMENDA) PO SCH ×2 (09:54→21:00)
[2023-05-25] MEDS: dexAMETHasone 2 MG TAB PO SCH (11:21)
[2023-05-25] MEDS ORDERED: KCL 10MEQ/100ML SWI (KRUN) 10 MEQ in IV 1 EA IV SCH (12:00)
[2023-05-25] MEDS: KCL 10MEQ/100ML SWI (KRUN) 10 MEQ in IV 1 EA IV SCH ×3 (12:04→14:38)
[2023-05-25] MEDS: ENOXAPARIN 40MG/0.4ML SYRINGE (J1650 PER 10MG) SC SCH (21:00)
[2023-05-25] MEDS: DONEPEZIL 5 MG TAB PO SCH (21:00)
[2023-05-25] MEDS: REMDESIVIR 100 MG in NS 250 ML IV SCH (21:01)
[2023-05-26] MEDS: PIPERACILLIN/TAZOBACTAM SOD 3.375 GM in D5W MINI-BAG PLUS 50 ML IV SCH (01:51)
[2023-05-26 04:50] VITALS: BP 150/71; TEMP 97.3; O2SAT 96
[2023-05-26] MEDS: D5W/LR 1,000 ML IV SCH ×2 (04:52→18:41)
[2023-05-26] MEDS: THIAMINE INJection 500 MG in NS 100 ML IV SCH ×3 (04:52→21:52)
[2023-05-26 06:12] LABS: BASO % 0.1 % (0.0-1.0); HEMATOCRIT 37.7 % (42.0-52.0); HEMOGLOBIN 12.7 g/dl (13.5-17.5); LYMPH # 1.1 10^3/uL (1.5-5.0); LYMPH % 14.6 % (24.0-44.0); MEAN CORPUSCULAR HEMOGLOBIN 29.7 pg (27.0-33.0); MEAN CORPUSCULAR HGB CONC 33.7 g/dl (32.0-36.5); MEAN CORPUSCULAR VOLUME 88.3 fl (80.0-96.0); MONO # 0.7 10^3/uL (0.0-0.8); MONO % 9.6 % (2.0-8.0); NEUTROPHILS # 5.8 10^3/uL (1.5-8.5); NEUTROPHILS % 75.3 % (36.0-66.0); PLATELET COUNT, AUTOMATED 234 10^3/uL (150-450); RED BLOOD COUNT 4.27 10^6/uL (4.30-6.10); WHITE BLOOD COUNT 7.7 10^3/uL (4.0-10.0)
[2023-05-26 06:21] LABS: ERYTHROCYTE SEDIMENTATION RATE 29 mm/hr (0-20)
[2023-05-26 06:36] LABS: CPK CREATINE PHOSPHOKINASE 753 U/L (46-171)
[2023-05-26 06:47] LABS: ALBUMIN 2.5 G/DL (3.2-5.2); ALKALINE PHOSPHATASE 57 U/L (46-116); ALT/SGPT 44 U/L (7.0-40); AST/SGOT 76 U/L (<34); BILIRUBIN,DIRECT 0.5 MG/DL (<0.4); BILIRUBIN,TOTAL 1.2 MG/DL (0.3-1.2); BLOOD UREA NITROGEN 12 MG/DL (9-23); CALCIUM LEVEL 8.2 MG/DL (8.3-10.6); CARBON DIOXIDE LEVEL 26 MMOL/L (20-31); CHLORIDE LEVEL 107 MMOL/L (98-107); CREATININE FOR GFR 0.72 MG/DL (0.70-1.30); GLOMERULAR FILTRATION RATE > 60.0 (>42); GLUCOSE, FASTING 120 MG/DL (74-106); MAGNESIUM LEVEL 2.1 MG/DL (1.8-2.4); POTASSIUM SERUM 3.3 MMOL/L (3.5-5.1); PROCALCITONIN 0.04 ng/ml; SODIUM LEVEL 142 MMOL/L (136-145); TOTAL PROTEIN 5.3 G/DL (5.7-8.2)
[2023-05-26 07:49] LABS: PHOSPHORUS LEVEL 3.4 MG/DL (2.4-5.1)
[2023-05-26 09:25] VITALS: BP 146/73; TEMP 97.9; O2SAT 95
[2023-05-26 10:00] VITALS: BP 148/68
[2023-05-26] MEDS: MEMANTINE 5MG TABLET (NAMENDA) PO SCH ×2 (10:05→21:20)
[2023-05-26] MEDS: SINEMET 25-100 MG TAB PO SCH ×3 (10:05→17:25)
[2023-05-26] MEDS: KCL 10MEQ/100ML SWI (KRUN) 10 MEQ in IV 1 EA IV SCH ×3 (10:05→12:29)
[2023-05-26] MEDS: SODIUM CHLORIDE NASAL 0.65% SPRAY BTL (OCEAN) SCH ×3 (10:06→21:21)
[2023-05-26] MEDS: dexAMETHasone 2 MG TAB PO SCH (10:06)
[2023-05-26] MEDS: LevoFLOXacin 750 MG TABLET PO SCH (10:09)
[2023-05-26 12:05] VITALS: BP 108/55; TEMP 98; O2SAT 96
[2023-05-26] MEDS: LIDOCAINE 5% (LIDODERM) PATCH TD SCH (12:29)
[2023-05-26 19:12] VITALS: BP 101/57; TEMP 98.6; O2SAT 97
[2023-05-26 20:27] VITALS: BP 133/69; TEMP 98.2; O2SAT 95
[2023-05-26] MEDS: DONEPEZIL 5 MG TAB PO SCH (21:20)
[2023-05-26] MEDS: ENOXAPARIN 40MG/0.4ML SYRINGE (J1650 PER 10MG) SC SCH (21:20)
[2023-05-26] MEDS: REMDESIVIR 100 MG in NS 250 ML IV SCH (22:22)
[2023-05-27] MEDS: ACETAMINOPHEN TAB 650MG DOSE (2X325MG) PO PRN (03:00)
[2023-05-27] MEDS: LevoFLOXacin 750 MG TABLET PO SCH (05:19)
[2023-05-27] MEDS: THIAMINE INJection 500 MG in NS 100 ML IV SCH ×3 (05:19→21:57)
[2023-05-27 06:00] VITALS: BP 132/84; TEMP 98.1; O2SAT 96
[2023-05-27 06:03] LABS: HEMATOCRIT 40.3 % (42.0-52.0); HEMOGLOBIN 13.9 g/dl (13.5-17.5); LYMPH # 1.3 10^3/uL (1.5-5.0); LYMPH % 16.6 % (24.0-44.0); MEAN CORPUSCULAR HEMOGLOBIN 30.3 pg (27.0-33.0); MEAN CORPUSCULAR HGB CONC 34.5 g/dl (32.0-36.5); MONO # 0.7 10^3/uL (0.0-0.8); MONO % 8.7 % (2.0-8.0); NEUTROPHILS # 5.8 10^3/uL (1.5-8.5); NEUTROPHILS % 73.9 % (36.0-66.0); PLATELET COUNT, AUTOMATED 246 10^3/uL (150-450); RED BLOOD COUNT 4.58 10^6/uL (4.30-6.10); WHITE BLOOD COUNT 7.8 10^3/uL (4.0-10.0)
[2023-05-27 06:27] LABS: CPK CREATINE PHOSPHOKINASE 569 U/L (46-171)
[2023-05-27 06:35] LABS: ALBUMIN 2.7 G/DL (3.2-5.2); ALKALINE PHOSPHATASE 59 U/L (46-116); ALT/SGPT 61 U/L (7.0-40); AST/SGOT 52 U/L (<34); BILIRUBIN,DIRECT 0.5 MG/DL (<0.4); BILIRUBIN,TOTAL 1.2 MG/DL (0.3-1.2); BLOOD UREA NITROGEN 11 MG/DL (9-23); CALCIUM LEVEL 8.3 MG/DL (8.3-10.6); CARBON DIOXIDE LEVEL 25 MMOL/L (20-31); CHLORIDE LEVEL 108 MMOL/L (98-107); CREATININE FOR GFR 0.62 MG/DL (0.70-1.30); GLOMERULAR FILTRATION RATE > 60.0 (>42); GLUCOSE, FASTING 111 MG/DL (74-106); POTASSIUM SERUM 3.3 MMOL/L (3.5-5.1); SODIUM LEVEL 142 MMOL/L (136-145); TOTAL PROTEIN 5.6 G/DL (5.7-8.2)
[2023-05-27] MEDS: SINEMET 25-100 MG TAB PO SCH ×3 (08:33→17:43)
[2023-05-27] MEDS: dexAMETHasone 2 MG TAB PO SCH (08:33)
[2023-05-27] MEDS: MEMANTINE 5MG TABLET (NAMENDA) PO SCH ×2 (08:33→21:57)
[2023-05-27] MEDS: LIDOCAINE 5% (LIDODERM) PATCH TD SCH (08:34)
[2023-05-27] MEDS: SODIUM CHLORIDE NASAL 0.65% SPRAY BTL (OCEAN) SCH ×3 (08:35→21:57)
[2023-05-27] MEDS ORDERED: POTASSIUM CHLORIDE 10% LIQ 20MEQ/15ML UDC PO ONE (11:50)
[2023-05-27 17:01] VITALS: BP 102/58; TEMP 97.9; O2SAT 96
[2023-05-27 20:00] VITALS: BP 105/52; TEMP 97.2; O2SAT 94
[2023-05-27] MEDS: DONEPEZIL 5 MG TAB PO SCH (21:57)
[2023-05-27] MEDS: ENOXAPARIN 40MG/0.4ML SYRINGE (J1650 PER 10MG) SC SCH (21:57)
[2023-05-27] MEDS: REMDESIVIR 100 MG in NS 250 ML IV SCH (22:37)
[2023-05-28] MEDS: THIAMINE INJection 500 MG in NS 100 ML IV SCH ×2 (05:02→14:34)
[2023-05-28] MEDS: LevoFLOXacin 750 MG TABLET PO SCH (05:02)
[2023-05-28 06:00] VITALS: BP 155/74; TEMP 98.1; O2SAT 93
[2023-05-28 06:39] LABS: BASO % 0.1 % (0.0-1.0); EOS % 0.1 % (0.0-3.0); HEMATOCRIT 36.7 % (42.0-52.0); HEMOGLOBIN 12.3 g/dl (13.5-17.5); LYMPH # 1.8 10^3/uL (1.5-5.0); LYMPH % 19.4 % (24.0-44.0); MEAN CORPUSCULAR HEMOGLOBIN 30.1 pg (27.0-33.0); MEAN CORPUSCULAR HGB CONC 33.5 g/dl (32.0-36.5); MEAN CORPUSCULAR VOLUME 89.7 fl (80.0-96.0); MONO # 0.9 10^3/uL (0.0-0.8); MONO % 9.3 % (2.0-8.0); NEUTROPHILS # 6.4 10^3/uL (1.5-8.5); NEUTROPHILS % 69.8 % (36.0-66.0); PLATELET COUNT, AUTOMATED 267 10^3/uL (150-450); RED BLOOD COUNT 4.09 10^6/uL (4.30-6.10); WHITE BLOOD COUNT 9.2 10^3/uL (4.0-10.0)
[2023-05-28] MEDS: ACETAMINOPHEN TAB 650MG DOSE (2X325MG) PO PRN ×2 (06:54→16:31)
[2023-05-28 07:03] LABS: CPK CREATINE PHOSPHOKINASE 272 U/L (46-171)
[2023-05-28 07:20] LABS: ALBUMIN 2.4 G/DL (3.2-5.2); ALKALINE PHOSPHATASE 50 U/L (46-116); ALT/SGPT 52 U/L (7.0-40); AST/SGOT 42 U/L (<34); BILIRUBIN,DIRECT 0.4 MG/DL (<0.4); BLOOD UREA NITROGEN 19 MG/DL (9-23); CARBON DIOXIDE LEVEL 26 MMOL/L (20-31); CHLORIDE LEVEL 108 MMOL/L (98-107); CREATININE FOR GFR 0.72 MG/DL (0.70-1.30); GLOMERULAR FILTRATION RATE > 60.0 (>42); GLUCOSE, FASTING 95 MG/DL (74-106); POTASSIUM SERUM 3.6 MMOL/L (3.5-5.1); SODIUM LEVEL 141 MMOL/L (136-145); TOTAL PROTEIN 4.9 G/DL (5.7-8.2)
[2023-05-28] MEDS: MEMANTINE 5MG TABLET (NAMENDA) PO SCH ×2 (07:48→21:10)
[2023-05-28] MEDS: SINEMET 25-100 MG TAB PO SCH ×3 (07:48→17:31)
[2023-05-28] MEDS: SODIUM CHLORIDE NASAL 0.65% SPRAY BTL (OCEAN) SCH ×3 (07:50→21:11)
[2023-05-28] MEDS: LIDOCAINE 5% (LIDODERM) PATCH TD SCH ×2 (07:51→12:18)
[2023-05-28] MEDS: dexAMETHasone 2 MG TAB PO SCH (07:52)
[2023-05-28] MEDS ORDERED: KETOROLAC 30 MG/ML 1ML VIAL IV ONE (09:00)
[2023-05-28] MEDS ORDERED: oxyCODONE 5MG TAB PO ONE (12:00)
[2023-05-28 14:00] VITALS: BP 120/67; TEMP 97.5; O2SAT 99
[2023-05-28] MEDS: DONEPEZIL 5 MG TAB PO SCH (21:10)
[2023-05-28] MEDS: ENOXAPARIN 40MG/0.4ML SYRINGE (J1650 PER 10MG) SC SCH (21:10)
[2023-05-28] MEDS: THIAMINE 100 MG TAB PO SCH (21:11)
[2023-05-29] MEDS: LevoFLOXacin 750 MG TABLET PO SCH (05:46)
[2023-05-29] MEDS: ACETAMINOPHEN TAB 650MG DOSE (2X325MG) PO PRN ×2 (06:06→13:24)
[2023-05-29 06:33] VITALS: BP 146/78; TEMP 98.1; O2SAT 98
[2023-05-29] MEDS ORDERED: PILL CUTTER 1 EACH XX PRN (08:25)
[2023-05-29] MEDS: SINEMET 25-100 MG TAB PO SCH ×3 (09:48→17:16)
[2023-05-29] MEDS: THIAMINE 100 MG TAB PO SCH ×2 (09:48→21:59)
[2023-05-29] MEDS: dexAMETHasone 2 MG TAB PO SCH (09:48)
[2023-05-29] MEDS: MEMANTINE 5MG TABLET (NAMENDA) PO SCH ×2 (09:48→22:00)
[2023-05-29] MEDS: traMADol 50 MG TAB PO PRN ×2 (09:49→22:01)
[2023-05-29] MEDS: LIDOCAINE 5% (LIDODERM) PATCH TD SCH ×2 (09:50)
[2023-05-29] MEDS: SODIUM CHLORIDE NASAL 0.65% SPRAY BTL (OCEAN) SCH ×3 (09:50→21:59)
[2023-05-29 14:00] VITALS: BP 84/48; TEMP 97.7; O2SAT 97
[2023-05-29 16:16] VITALS: BP 110/52
[2023-05-29] MEDS ORDERED: LR 500 ML IV ONE (16:55)
[2023-05-29 18:19] VITALS: BP 103/62
[2023-05-29] MEDS: DONEPEZIL 5 MG TAB PO SCH (22:00)
[2023-05-29] MEDS: ENOXAPARIN 40MG/0.4ML SYRINGE (J1650 PER 10MG) SC SCH (22:01)
[2023-05-30] MEDS: ACETAMINOPHEN TAB 650MG DOSE (2X325MG) PO PRN (00:07)
[2023-05-30 06:00] VITALS: BP 151/80; TEMP 98.1; O2SAT 98
[2023-05-30] MEDS: LIDOCAINE 5% (LIDODERM) PATCH TD SCH ×2 (09:18)
[2023-05-30 09:19] VITALS: BP 142/82
[2023-05-30] MEDS: SINEMET 25-100 MG TAB PO SCH (09:19)
[2023-05-30] MEDS: dexAMETHasone 2 MG TAB PO SCH (09:19)
[2023-05-30] MEDS: MEMANTINE 5MG TABLET (NAMENDA) PO SCH (09:19)
[2023-05-30] MEDS: THIAMINE 100 MG TAB PO SCH (09:20)
[2023-05-30] MEDS: SODIUM CHLORIDE NASAL 0.65% SPRAY BTL (OCEAN) SCH (09:20)
[2023-05-30] MEDS ORDERED: LIDO5TD TD (10:52)
[2023-05-30] MEDS ORDERED: MOUKOT60 MT (10:52)
[2023-05-30] MEDS ORDERED: THIA100TA PO (10:52)
[2023-05-30] MEDS ORDERED: Sodium Chloride Nasal Spray (10:52)
[2023-05-30] MEDS ORDERED: LISI20TA33 PO (10:53)
[2023-05-31] MEDS ORDERED: ACET32TAB PO (13:20)
[2023-05-31] MEDS ORDERED: MILKSUS3 PO (13:20)
[2023-05-31] MEDS ORDERED: SALI0.6531 NARES (13:23)
[2023-05-31] MEDS ORDERED: FLEEENE12 PR (13:23)
[2023-05-31] MEDS ORDERED: DULC10SU2 PR (13:23)
[2023-05-31] MEDS ORDERED: ACET65SU PR (17:39)
[2023-05-31] MEDS ORDERED: MOUKOT60 MT (17:39)
== END 2023-05-30 11:32 | DRG 70 ==
LOC: EDBD 17:57 → M ED 17:57 → M ED INP 23:55 → M PCU 05-21 02:30 → M MSPAV 05-22 00:20 → M PCU 05-22 23:00 → M MSPAV 05-26 20:27
PROVIDERS: ADMIT Family Medicine; ATTEND Internal Medicine
PROC: XW033E5 Introduction of Remdesivir Anti-infective into Peripheral Vein, Percutaneous Approach, New Technology Group 5 (ICD-10-PCS; principal; 2023-05-21)
PROC: B246ZZZ Ultrasonography of Right and Left Heart (ICD-10-PCS; 2023-05-21)
PROC: 3E0333Z Introduction of Anti-inflammatory into Peripheral Vein, Percutaneous Approach (ICD-10-PCS; 2023-05-23)
DX: G93.41 Metabolic encephalopathy (principal); U07.1 COVID-19; J12.82 Pneumonia due to coronavirus disease 2019; J15.9 Unspecified bacterial pneumonia; M62.82 Rhabdomyolysis; G45.9 Transient cerebral ischemic attack, unspecified; F05 Delirium due to known physiological condition; R47.81 Slurred speech; G20.A1 Parkinson's disease without dyskinesia, without mention of fluctuations; I10 Essential (primary) hypertension; E87.6 Hypokalemia; G31.83 Neurocognitive disorder with Lewy bodies; F02.80 Dementia in other diseases classified elsewhere, unspecified severity, without behavioral disturbance, psychotic disturbance, mood disturbance, and anxiety; E78.5 Hyperlipidemia, unspecified; R74.01 Elevation of levels of liver transaminase levels; R04.0 Epistaxis; R13.10 Dysphagia, unspecified; R53.1 Weakness; Z86.73 Personal history of transient ischemic attack (TIA), and cerebral infarction without residual deficits; Z87.891 Personal history of nicotine dependence; Z79.899 Other long term (current) drug therapy

== ENCOUNTER 2023-05-31 12:58 | Observation (INO) | payer MEDICARE, BC ==
[~2023-05-31] VITALS: Ht 188 cm; Wt 71.5 kg
[~2023-05-31 12:58] MED LIST changes: +CARB25TA9 PO; +FLUT05CR TOP; +LIDO5TD TD; +LISI20TA33 PO; +LISI20TA35 PO; +MEMA10TA19 PO; +MOUKOT60 MT; +ROSU40TA4 PO; +Sodium Chloride Nasal Spray; +THIA100TA PO
[2023-05-31] MEDS ORDERED: MILKSUS3 PO (13:20)
[2023-05-31] MEDS ORDERED: ACET32TAB PO (13:20)
[2023-05-31] MEDS ORDERED: FLEEENE12 PR (13:23)
[2023-05-31] MEDS ORDERED: DULC10SU2 PR (13:23)
[2023-05-31] MEDS ORDERED: SALI0.6531 NARES (13:23)
[2023-05-31 13:40] LABS: BASO % 0.2 % (0.0-1.0); EOS # 0.1 10^3/uL (0.0-0.5); EOS % 0.5 % (0.0-3.0); HEMATOCRIT 39.3 % (42.0-52.0); HEMOGLOBIN 13.1 g/dl (13.5-17.5); LYMPH # 2.2 10^3/uL (1.5-5.0); LYMPH % 13.2 % (24.0-44.0); MEAN CORPUSCULAR HEMOGLOBIN 30.3 pg (27.0-33.0); MEAN CORPUSCULAR HGB CONC 33.3 g/dl (32.0-36.5); MEAN CORPUSCULAR VOLUME 90.8 fl (80.0-96.0); MONO # 1.4 10^3/uL (0.0-0.8); MONO % 8.4 % (2.0-8.0); NEUTROPHILS # 12.6 10^3/uL (1.5-8.5); NEUTROPHILS % 75.5 % (36.0-66.0); PLATELET COUNT, AUTOMATED 323 10^3/uL (150-450); RED BLOOD COUNT 4.33 10^6/uL (4.30-6.10); WHITE BLOOD COUNT 16.7 10^3/uL (4.0-10.0)
[2023-05-31 14:10] LABS: BLOOD UREA NITROGEN 27 MG/DL (9-23); CARBON DIOXIDE LEVEL 26 MMOL/L (20-31); CHLORIDE LEVEL 106 MMOL/L (98-107); GLOMERULAR FILTRATION RATE > 60.0 (>42); GLUCOSE, FASTING 90 MG/DL (74-106); POTASSIUM SERUM 3.6 MMOL/L (3.5-5.1); SODIUM LEVEL 140 MMOL/L (136-145)
[2023-05-31] MEDS ORDERED: LIDOCAINE 2% 5ML JELLY UROJET TOP ONE (14:10)
[2023-05-31] MEDS ORDERED: ACET65SU PR (17:39)
[2023-05-31] MEDS ORDERED: MOUKOT60 MT (17:39)
[2023-05-31] MEDS ORDERED: HOME MED LIST COMPLETE! XX SCH (17:40)
[2023-05-31] MEDS ORDERED: NS 1,000 ML IV ONE (19:15)
[2023-05-31 19:24] LABS: PROCALCITONIN 0.08 ng/ml
[2023-05-31] MEDS: SINEMET 25-100 MG TAB PO SCH (20:43)
[2023-05-31] MEDS: ROSUVASTATIN 10 MG TAB (CRESTOR) PO SCH (20:43)
[2023-05-31] MEDS: THIAMINE 100 MG TAB PO SCH (20:43)
[2023-05-31] MEDS: MEMANTINE 5MG TABLET (NAMENDA) PO SCH (20:43)
[2023-05-31] MEDS ORDERED: DONEPEZIL 5 MG TAB PO SCH (21:00)
[2023-05-31 22:21] VITALS: BP 114/65; TEMP 97.9; O2SAT 93
[2023-06-01 05:37] LABS: HEMATOCRIT 37.2 % (42.0-52.0); HEMOGLOBIN 12.3 g/dl (13.5-17.5); MEAN CORPUSCULAR HEMOGLOBIN 30.1 pg (27.0-33.0); MEAN CORPUSCULAR HGB CONC 33.1 g/dl (32.0-36.5); MEAN CORPUSCULAR VOLUME 91.2 fl (80.0-96.0); PLATELET COUNT, AUTOMATED 274 10^3/uL (150-450); RED BLOOD COUNT 4.08 10^6/uL (4.30-6.10); WHITE BLOOD COUNT 18.8 10^3/uL (4.0-10.0)
[2023-06-01 05:38] VITALS: BP 105/60; TEMP 97.9; O2SAT 98
[2023-06-01 05:43] LABS: ERYTHROCYTE SEDIMENTATION RATE 11 mm/hr (0-20)
[2023-06-01] MEDS ORDERED: ONDANSETRON 4MG 2ML VIAL IV PRN (05:55)
[2023-06-01 06:11] LABS: BLOOD UREA NITROGEN 21 MG/DL (9-23); CALCIUM LEVEL 7.9 MG/DL (8.3-10.6); CARBON DIOXIDE LEVEL 23 MMOL/L (20-31); CHLORIDE LEVEL 108 MMOL/L (98-107); CREATININE FOR GFR 0.69 MG/DL (0.70-1.30); GLOMERULAR FILTRATION RATE > 60.0 (>42); GLUCOSE, FASTING 88 MG/DL (74-106); POTASSIUM SERUM 3.6 MMOL/L (3.5-5.1); SODIUM LEVEL 140 MMOL/L (136-145)
[2023-06-01] MEDS: PANTOPRAZOLE 40MG VIAL IV SCH (06:26)
[2023-06-01 08:57] VITALS: BP 105/59; TEMP 97.9; O2SAT 95
[2023-06-01] MEDS: SENOKOT S TAB PO SCH ×3 (09:00→21:15)
[2023-06-01] MEDS ORDERED: SENOKOT S TAB PO SCH (09:00)
[2023-06-01] MEDS: THIAMINE 100 MG TAB PO SCH ×3 (09:00→21:16)
[2023-06-01] MEDS: BISACODYL 10MG SUPP PR SCH (09:00)
[2023-06-01] MEDS: SINEMET 25-100 MG TAB PO SCH ×4 (09:00→21:15)
[2023-06-01] MEDS: ENOXAPARIN 40MG/0.4ML SYRINGE (J1650 PER 10MG) SC SCH (09:00)
[2023-06-01] MEDS: MEMANTINE 5MG TABLET (NAMENDA) PO SCH ×2 (09:00→11:49)
[2023-06-01 12:30] LABS: ALBUMIN 2.4 G/DL (3.2-5.2); ALKALINE PHOSPHATASE 53 U/L (46-116); ALT/SGPT 32 U/L (7.0-40); AST/SGOT 20 U/L (<34); BILIRUBIN,DIRECT 0.7 MG/DL (<0.4); TOTAL PROTEIN 4.8 G/DL (5.7-8.2)
[2023-06-01] MEDS: D5W/0.9% SODIUM CHLORIDE 1,000 ML IV SCH (12:50)
[2023-06-01 14:20] VITALS: BP 149/78; TEMP 97.7; O2SAT 98
[2023-06-01] MEDS: ROSUVASTATIN 10 MG TAB (CRESTOR) PO SCH (21:14)
[2023-06-01] MEDS: amLODIPine 5 MG TAB PO SCH (21:16)
[2023-06-01] MEDS: DONEPEZIL 5 MG TAB PO SCH (21:16)
[2023-06-01 22:00] VITALS: BP 154/77; TEMP 97.9; O2SAT 95
[2023-06-02] MEDS: D5W/0.9% SODIUM CHLORIDE 1,000 ML IV SCH (01:58)
[2023-06-02] MEDS: PANTOPRAZOLE 40MG VIAL IV SCH (05:44)
[2023-06-02 06:00] VITALS: BP 139/74; TEMP 97.5; O2SAT 94
[2023-06-02 07:57] LABS: BASO % 0.1 % (0.0-1.0); EOS # 0.1 10^3/uL (0.0-0.5); EOS % 0.8 % (0.0-3.0); HEMATOCRIT 39.1 % (42.0-52.0); LYMPH # 1.4 10^3/uL (1.5-5.0); LYMPH % 8.3 % (24.0-44.0); MEAN CORPUSCULAR HEMOGLOBIN 29.9 pg (27.0-33.0); MEAN CORPUSCULAR HGB CONC 33.2 g/dl (32.0-36.5); MEAN CORPUSCULAR VOLUME 89.9 fl (80.0-96.0); MONO % 5.7 % (2.0-8.0); NEUTROPHILS # 14.6 10^3/uL (1.5-8.5); NEUTROPHILS % 84.5 % (36.0-66.0); PLATELET COUNT, AUTOMATED 264 10^3/uL (150-450); RED BLOOD COUNT 4.35 10^6/uL (4.30-6.10); WHITE BLOOD COUNT 17.3 10^3/uL (4.0-10.0)
[2023-06-02 08:01] LABS: BLOOD UREA NITROGEN 9 MG/DL (9-23); CALCIUM LEVEL 8.1 MG/DL (8.3-10.6); CARBON DIOXIDE LEVEL 26 MMOL/L (20-31); CHLORIDE LEVEL 106 MMOL/L (98-107); CREATININE FOR GFR 0.56 MG/DL (0.70-1.30); GLOMERULAR FILTRATION RATE > 60.0 (>42); GLUCOSE, FASTING 94 MG/DL (74-106); POTASSIUM SERUM 3.5 MMOL/L (3.5-5.1); SODIUM LEVEL 139 MMOL/L (136-145)
[2023-06-02] MEDS: SENOKOT S TAB PO SCH ×2 (08:53→20:08)
[2023-06-02] MEDS: SINEMET 25-100 MG TAB PO SCH ×3 (08:53→20:07)
[2023-06-02] MEDS: THIAMINE 100 MG TAB PO SCH ×2 (08:53→20:08)
[2023-06-02] MEDS: amLODIPine 5 MG TAB PO SCH ×2 (08:54→20:08)
[2023-06-02] MEDS: BISACODYL 10MG SUPP PR SCH (08:55)
[2023-06-02] MEDS: ENOXAPARIN 40MG/0.4ML SYRINGE (J1650 PER 10MG) SC SCH (08:55)
[2023-06-02 14:00] VITALS: BP 121/71; TEMP 97.3; O2SAT 98
[2023-06-02] MEDS: ROSUVASTATIN 10 MG TAB (CRESTOR) PO SCH (20:08)
[2023-06-02] MEDS: DONEPEZIL 5 MG TAB PO SCH (20:08)
[2023-06-02 22:00] VITALS: BP 143/76; TEMP 97.5; O2SAT 96
[2023-06-03] MEDS: PANTOPRAZOLE 40MG VIAL IV SCH (05:32)
[2023-06-03 05:58] VITALS: BP 128/74; TEMP 97.7; O2SAT 96
[2023-06-03 07:45] LABS: BASO % 0.1 % (0.0-1.0); EOS # 0.1 10^3/uL (0.0-0.5); EOS % 0.9 % (0.0-3.0); HEMATOCRIT 39.3 % (42.0-52.0); HEMOGLOBIN 13.3 g/dl (13.5-17.5); LYMPH # 1.3 10^3/uL (1.5-5.0); LYMPH % 8.7 % (24.0-44.0); MEAN CORPUSCULAR HGB CONC 33.8 g/dl (32.0-36.5); MEAN CORPUSCULAR VOLUME 88.7 fl (80.0-96.0); MONO # 0.8 10^3/uL (0.0-0.8); MONO % 5.1 % (2.0-8.0); NEUTROPHILS # 12.7 10^3/uL (1.5-8.5); NEUTROPHILS % 84.6 % (36.0-66.0); PLATELET COUNT, AUTOMATED 247 10^3/uL (150-450); RED BLOOD COUNT 4.43 10^6/uL (4.30-6.10)
[2023-06-03 08:03] LABS: BLOOD UREA NITROGEN 8 MG/DL (9-23); CALCIUM LEVEL 8.4 MG/DL (8.3-10.6); CARBON DIOXIDE LEVEL 24 MMOL/L (20-31); CHLORIDE LEVEL 106 MMOL/L (98-107); CREATININE FOR GFR 0.51 MG/DL (0.70-1.30); GLOMERULAR FILTRATION RATE > 60.0 (>42); GLUCOSE, FASTING 80 MG/DL (74-106); POTASSIUM SERUM 3.6 MMOL/L (3.5-5.1); SODIUM LEVEL 141 MMOL/L (136-145)
[2023-06-03] MEDS: SINEMET 25-100 MG TAB PO SCH ×3 (08:42→20:23)
[2023-06-03] MEDS: BISACODYL 10MG SUPP PR SCH (08:42)
[2023-06-03] MEDS: SENOKOT S TAB PO SCH ×2 (08:42→20:22)
[2023-06-03] MEDS: amLODIPine 5 MG TAB PO SCH (08:42)
[2023-06-03] MEDS: THIAMINE 100 MG TAB PO SCH ×2 (08:42→20:23)
[2023-06-03] MEDS: ENOXAPARIN 40MG/0.4ML SYRINGE (J1650 PER 10MG) SC SCH (08:43)
[2023-06-03 20:21] VITALS: BP 124/69; TEMP 97.3; O2SAT 98
[2023-06-03] MEDS: ROSUVASTATIN 10 MG TAB (CRESTOR) PO SCH (20:22)
[2023-06-03 20:23] VITALS: BP 124/69
[2023-06-03] MEDS: DONEPEZIL 5 MG TAB PO SCH (20:23)
[2023-06-03] MEDS ORDERED: amLODIPine 5 MG TAB PO SCH (21:00)
[2023-06-04] MEDS: PANTOPRAZOLE 40MG VIAL IV SCH (05:28)
[2023-06-04 05:29] VITALS: BP 110/56; TEMP 98.1; O2SAT 98
[2023-06-04] MEDS: BISACODYL 10MG SUPP PR SCH (09:00)
[2023-06-04] MEDS: SINEMET 25-100 MG TAB PO SCH (09:25)
[2023-06-04] MEDS: SENOKOT S TAB PO SCH (09:25)
[2023-06-04] MEDS: THIAMINE 100 MG TAB PO SCH (09:25)
[2023-06-04] MEDS: ENOXAPARIN 40MG/0.4ML SYRINGE (J1650 PER 10MG) SC SCH (09:26)
[2023-06-04 09:31] LABS: BASO % 0.2 % (0.0-1.0); EOS # 0.1 10^3/uL (0.0-0.5); EOS % 0.9 % (0.0-3.0); HEMATOCRIT 36.5 % (42.0-52.0); HEMOGLOBIN 12.3 g/dl (13.5-17.5); LYMPH # 1.6 10^3/uL (1.5-5.0); MEAN CORPUSCULAR HEMOGLOBIN 30.1 pg (27.0-33.0); MEAN CORPUSCULAR HGB CONC 33.7 g/dl (32.0-36.5); MEAN CORPUSCULAR VOLUME 89.2 fl (80.0-96.0); MONO # 0.7 10^3/uL (0.0-0.8); MONO % 6.8 % (2.0-8.0); NEUTROPHILS # 7.5 10^3/uL (1.5-8.5); NEUTROPHILS % 75.7 % (36.0-66.0); PLATELET COUNT, AUTOMATED 242 10^3/uL (150-450); RED BLOOD COUNT 4.09 10^6/uL (4.30-6.10); WHITE BLOOD COUNT 9.9 10^3/uL (4.0-10.0)
[2023-06-04 10:06] LABS: BLOOD UREA NITROGEN 8 MG/DL (9-23); CALCIUM LEVEL 8.5 MG/DL (8.3-10.6); CARBON DIOXIDE LEVEL 26 MMOL/L (20-31); CHLORIDE LEVEL 107 MMOL/L (98-107); CREATININE FOR GFR 0.62 MG/DL (0.70-1.30); GLOMERULAR FILTRATION RATE > 60.0 (>42); GLUCOSE, FASTING 105 MG/DL (74-106); POTASSIUM SERUM 3.4 MMOL/L (3.5-5.1); SODIUM LEVEL 141 MMOL/L (136-145)
[2023-06-04] MEDS ORDERED: ARIC1TAB PO (11:21)
[2023-06-04] MEDS ORDERED: AMLO1TAB24 PO (11:21)
[2023-06-04] MEDS ORDERED: MEMA1TAB3 PO (11:21)
[2023-06-04] MEDS ORDERED: POTASSIUM CHLORIDE 10MEQ SR TABLET PO ONE (12:00)
[2023-06-04] MEDS ORDERED: POTASSIUM CHL PWD 20MEQ PACKET PO ONE (13:00)
== END 2023-06-04 13:30 ==
LOC: M ED 12:58 → EDBD 12:58 → M ED INP 12:59 → ENRESERV 19:46 → M MS5PR 20:21
PROVIDERS: ADMIT Internal Medicine Nephrology; ATTEND Internal Medicine Nephrology
DX: G93.41 Metabolic encephalopathy (principal); D72.829 Elevated white blood cell count, unspecified; E86.0 Dehydration; I95.9 Hypotension, unspecified; T43.8X5A Adverse effect of other psychotropic drugs, initial encounter; T44.0X5A Adverse effect of anticholinesterase agents, initial encounter; R40.0 Somnolence; R53.83 Other fatigue; R00.1 Bradycardia, unspecified; U07.1 COVID-19; J15.9 Unspecified bacterial pneumonia; I10 Essential (primary) hypertension; E78.5 Hyperlipidemia, unspecified; G20.A1 Parkinson's disease without dyskinesia, without mention of fluctuations; G31.83 Neurocognitive disorder with Lewy bodies; F02.80 Dementia in other diseases classified elsewhere, unspecified severity, without behavioral disturbance, psychotic disturbance, mood disturbance, and anxiety; Z86.73 Personal history of transient ischemic attack (TIA), and cerebral infarction without residual deficits; M62.82 Rhabdomyolysis; J30.9 Allergic rhinitis, unspecified; Z79.899 Other long term (current) drug therapy; Z80.3 Family history of malignant neoplasm of breast; Z80.42 Family history of malignant neoplasm of prostate; Z82.0 Family history of epilepsy and other diseases of the nervous system; Z87.891 Personal history of nicotine dependence
CPT/HCPCS: 36415; 71045; 71250; 80048; 80076; 81001; 83605; 84145; 85025; 85027; 85652; 86140; 87040; 87426; 87486; 87581; 87633; 87635; 87798; 92610; 93005; 93041; 94760; 96372; 96374; 96376; 97161; 97530; 99285; C9113; G0378; J1650

== ENCOUNTER → 2023-08-08 | Outpatient (REF) | payer MEDICARE, BC ==
[~2023-08-08] MED LIST changes: +ACET32TAB PO; +ACET65SU PR; +AMLO1TAB24 PO; +ARIC1TAB PO; +DULC10SU2 PR; +FLEEENE12 PR; +MEMA1TAB3 PO; +MILKSUS3 PO; +SALI0.6531 NARES
[2023-08-08 18:57] LABS: FERRITIN 179.6 NG/ML (10.5-307.3)
== END ==
LOC: M LAB REF 17:24
PROVIDERS: ATTEND Internal Medicine
DX: D64.9 Anemia, unspecified (principal)

== ENCOUNTER 2023-08-30 14:56 | Emergency (ER) | payer MEDICARE, BC ==
[~2023-08-30] VITALS: Ht 185.4 cm; Wt 71.5 kg
[2023-08-30 15:38] LABS: VENOUS BASE EXCESS 2.2 (-2.0-2.0); VENOUS HCO3 28.7 MMOL/L (23.0-27.0); VENOUS O2 SATURATION 59.4 % (60.0-80.0); VENOUS PARTIAL PRESSURE CO2 51.6 mmHg (38.0-50.0); VENOUS PARTIAL PRESSURE O2 29.9 mmHg (30.0-50.0); VENOUS PH 7.363 UNITS (7.330-7.430); VENOUS STANDARD HCO3 25.4 MMOL/L; VENOUS TOTAL CO2 30.3 MMOL/L (24.0-28.0)
[2023-08-30 15:44] LABS: BASO # 0.1 10^3/uL (0.0-0.2); EOS # 0.1 10^3/uL (0.0-0.5); HEMATOCRIT 44.3 % (42.0-52.0); LYMPH # 1.5 10^3/uL (1.5-5.0); LYMPH % 28.5 % (24.0-44.0); MEAN CORPUSCULAR HGB CONC 31.6 g/dl (32.0-36.5); MEAN CORPUSCULAR VOLUME 91.9 fl (80.0-96.0); MONO # 0.4 10^3/uL (0.0-0.8); MONO % 7.3 % (2.0-8.0); NEUTROPHILS # 3.2 10^3/uL (1.5-8.5); PLATELET COUNT, AUTOMATED 169 10^3/uL (150-450); RED BLOOD COUNT 4.82 10^6/uL (4.30-6.10); WHITE BLOOD COUNT 5.2 10^3/uL (4.0-10.0)
[2023-08-30 16:05] LABS: ALBUMIN 3.6 G/DL (3.2-5.2); ALKALINE PHOSPHATASE 82 U/L (46-116); ALT/SGPT < 9 U/L (7.0-40); AST/SGOT 17 U/L (<34); BILIRUBIN,DIRECT 0.3 MG/DL (<0.4); BILIRUBIN,TOTAL 1.1 MG/DL (0.3-1.2); BLOOD UREA NITROGEN 9 MG/DL (9-23); CALCIUM LEVEL 8.5 MG/DL (8.3-10.6); CARBON DIOXIDE LEVEL 31 MMOL/L (20-31); CHLORIDE LEVEL 105 MMOL/L (98-107); CREATININE FOR GFR 0.73 MG/DL (0.70-1.30); GLOMERULAR FILTRATION RATE > 60.0 (>42); GLUCOSE, FASTING 95 MG/DL (74-106); SODIUM LEVEL 140 MMOL/L (136-145); TOTAL PROTEIN 6.3 G/DL (5.7-8.2)
[2023-08-30 16:07] LABS: THYROID STIMULATING HORMONE 1.081 uIU/ML (0.55-4.78)
[2023-08-30 16:21] LABS: RSV AMPLIFICATION NEGATIVE (NEGATIVE)
[2023-08-30] MEDS ORDERED: ACETAMINOPHEN TAB 650MG DOSE (2X325MG) PO PRN (17:25)
[2023-08-30] MEDS ORDERED: MOM 30ML SUSPENSION UDC PO PRN (17:25)
[2023-08-30 18:06] VITALS: BP 154/70
[2023-08-30] MEDS ORDERED: ARIC1TAB PO (20:36)
[2023-08-30] MEDS ORDERED: MIRA3350 PO (20:36)
[2023-08-30] MEDS ORDERED: THIA100T7 PO (20:36)
[2023-08-30] MEDS ORDERED: SENN-121 PO (20:36)
[2023-08-30] MEDS ORDERED: MEMA1TAB3 PO (20:36)
[2023-08-30] MEDS ORDERED: HOME MED LIST COMPLETE! XX SCH (20:40)
[2023-08-30] MEDS: DOCUSATE SODIUM 100MG CAPSULE PO SCH (20:58)
[2023-08-31] MEDS: SINEMET 25-100 MG TAB PO SCH (08:00)
[2023-08-31] MEDS ORDERED: MEMANTINE 5MG TABLET (NAMENDA) PO SCH (09:00)
[2023-08-31] MEDS: ENOXAPARIN 40MG/0.4ML SYRINGE (J1650 PER 10MG) SC SCH (11:54)
[2023-08-31] MEDS: MIRALAX *UNIT DOSE* 17GM PACKET PO SCH (11:54)
[2023-08-31] MEDS: THIAMINE 100 MG TAB PO SCH (11:54)
[2023-08-31] MEDS: SENOKOT S TAB PO SCH (11:54)
[2023-08-31 13:57] VITALS: BP 136/65; TEMP 98.4; O2SAT 96
[2023-08-31] MEDS ORDERED: ROSUVASTATIN 10 MG TAB (CRESTOR) PO SCH (21:00)
[2023-08-31] MEDS ORDERED: DONEPEZIL 5 MG TAB PO SCH (21:00)
== END 2023-08-31 14:00 | disposition home or self-care (01) ==
LOC: M ED 14:56 → EDBD 14:56 → M ED 08-31 14:00
DX: F03.90 Unspecified dementia, unspecified severity, without behavioral disturbance, psychotic disturbance, mood disturbance, and anxiety (principal); I10 Essential (primary) hypertension; E78.5 Hyperlipidemia, unspecified; G20.C Parkinsonism, unspecified; Z87.891 Personal history of nicotine dependence; J30.89 Other allergic rhinitis; Z79.899 Other long term (current) drug therapy
CPT/HCPCS: 70450; 71045; 80048; 80076; 81001; 82140; 82803; 83605; 83930; 84443; 85025; 87040; 87631; 93005; 93041; 94760; 99285; J1650

== ENCOUNTER 2023-09-03 13:55 | Emergency (ER) | payer MEDICARE, BC ==
[~2023-09-03] VITALS: Ht 185.4 cm; Wt 77.5 kg
[~2023-09-03 13:55] MED LIST changes: +MIRA3350 PO; +SENN-121 PO; +THIA100T7 PO
[2023-09-03] MEDS: LIDOCAINE 2% 5ML JELLY UROJET TOP ONE ×2 (14:05→14:35)
[2023-09-03 14:19] LABS: VENOUS BASE EXCESS 2.3 (-2.0-2.0); VENOUS HCO3 27.6 MMOL/L (23.0-27.0); VENOUS O2 SATURATION 67.4 % (60.0-80.0); VENOUS PARTIAL PRESSURE CO2 44.9 mmHg (38.0-50.0); VENOUS PARTIAL PRESSURE O2 33.5 mmHg (30.0-50.0); VENOUS PH 7.406 UNITS (7.330-7.430); VENOUS STANDARD HCO3 25.6 MMOL/L; VENOUS TOTAL CO2 28.9 MMOL/L (24.0-28.0)
[2023-09-03 14:30] LABS: BASO % 0.5 % (0.0-1.0); EOS % 0.3 % (0.0-3.0); HEMATOCRIT 45.6 % (42.0-52.0); HEMOGLOBIN 14.9 g/dl (13.5-17.5); LYMPH # 1.5 10^3/uL (1.5-5.0); LYMPH % 22.8 % (24.0-44.0); MEAN CORPUSCULAR HEMOGLOBIN 29.3 pg (27.0-33.0); MEAN CORPUSCULAR HGB CONC 32.7 g/dl (32.0-36.5); MEAN CORPUSCULAR VOLUME 89.8 fl (80.0-96.0); MONO # 0.4 10^3/uL (0.0-0.8); MONO % 6.2 % (2.0-8.0); NEUTROPHILS # 4.5 10^3/uL (1.5-8.5); NEUTROPHILS % 69.9 % (36.0-66.0); PLATELET COUNT, AUTOMATED 190 10^3/uL (150-450); RED BLOOD COUNT 5.08 10^6/uL (4.30-6.10); WHITE BLOOD COUNT 6.5 10^3/uL (4.0-10.0)
[2023-09-03] MEDS: NS 1,000 ML IV ONE (14:52)
[2023-09-03 15:02] LABS: C REACTIVE PROTEIN QUANTITATIV < 0.40 MG/DL (<1.0); CK-MB VALUE MASS 1.7 NG/ML (<3.6)
[2023-09-03 15:03] LABS: ALBUMIN 3.9 G/DL (3.2-5.2); ALKALINE PHOSPHATASE 86 U/L (46-116); ALT/SGPT < 9 U/L (7.0-40); AST/SGOT 19 U/L (<34); BILIRUBIN,DIRECT 0.5 MG/DL (<0.4); BILIRUBIN,TOTAL 1.8 MG/DL (0.3-1.2); BLOOD UREA NITROGEN 12 MG/DL (9-23); CALCIUM LEVEL 8.9 MG/DL (8.3-10.6); CARBON DIOXIDE LEVEL 28 MMOL/L (20-31); CHLORIDE LEVEL 108 MMOL/L (98-107); CREATININE FOR GFR 0.73 MG/DL (0.70-1.30); GLOMERULAR FILTRATION RATE > 60.0 (>42); GLUCOSE, FASTING 102 MG/DL (74-106); POTASSIUM SERUM 4.2 MMOL/L (3.5-5.1); SODIUM LEVEL 141 MMOL/L (136-145); TOTAL PROTEIN 6.5 G/DL (5.7-8.2)
[2023-09-03 15:03] LABS: RSV AMPLIFICATION NEGATIVE (NEGATIVE)
[2023-09-03 15:04] LABS: CPK CREATINE PHOSPHOKINASE 141 U/L (46-171)
[2023-09-03 15:05] LABS: FREE T4 1.16 NG/DL (0.89-1.76); THYROID STIMULATING HORMONE 1.762 uIU/ML (0.55-4.78)
[2023-09-03 15:25] LABS: AMPHETAMINES LEVEL URINE NEGATIVE (NEGATIVE); BARBITURATES URINE NEGATIVE (NEGATIVE); BENZODIAZEPINES URINE NEGATIVE (NEGATIVE); CANNABINOIDS URINE NEGATIVE (NEGATIVE); COCAINE METABOLITE URINE NEGATIVE (NEGATIVE); METHADONE URINE NEGATIVE (NEGATIVE); OPIATES URINE NEGATIVE (NEGATIVE); PHENCYCLIDINE URINE NEGATIVE (NEGATIVE)
[2023-09-03] MEDS: LORazepam 2 MG/ML 1ML VIAL IV STA (16:54)
[2023-09-03] MEDS ORDERED: MILK24002 PO (16:58)
[2023-09-03] MEDS ORDERED: APAP325T4 PO (16:58)
[2023-09-03] MEDS ORDERED: BISA10SU59 PR (16:58)
[2023-09-03] MEDS ORDERED: SENN-188 PO (16:58)
[2023-09-03] MEDS ORDERED: HOME MED LIST COMPLETE! XX SCH (17:00)
[2023-09-03] MEDS: levETIRAcetam INJection 500 MG in D5W MINI-BAG PLUS 100 ML IV ONE (17:01)
[2023-09-03] MEDS: FINASTERIDE 5MG TAB PO ONE (17:01)
[2023-09-03] MEDS: TAMSULOSIN 0.4 MG CAP PO ONE (17:01)
[2023-09-03] MEDS ORDERED: ATIV1TAB7 PO (17:51)
[2023-09-03] MEDS ORDERED: KEPP250T5 PO (17:51)
[2023-09-03] MEDS ORDERED: FINA-48 PO (17:51)
[2023-09-03] MEDS ORDERED: FLOM0.4C39 PO (17:51)
[2023-09-03 18:00] VITALS: BP 157/75; TEMP 99.5; O2SAT 95
== END 2023-09-03 18:54 | disposition home or self-care (01) ==
LOC: M ED 15:51
DX: G25.3 Myoclonus (principal); G31.83 Neurocognitive disorder with Lewy bodies; F02.80 Dementia in other diseases classified elsewhere, unspecified severity, without behavioral disturbance, psychotic disturbance, mood disturbance, and anxiety; G30.9 Alzheimer's disease, unspecified; G20.A1 Parkinson's disease without dyskinesia, without mention of fluctuations; R33.9 Retention of urine, unspecified; J30.9 Allergic rhinitis, unspecified; Z79.899 Other long term (current) drug therapy
CPT/HCPCS: 51703; 70450; 71045; 80048; 80076; 80307; 81001; 82140; 82550; 82553; 82803; 83605; 84439; 84443; 84484; 85025; 86140; 87040; 87631; 93005; 93041; 94760; 96361; 96365; 96375; 99285; J1953; J2060

== ENCOUNTER → 2023-09-10 | Outpatient (REF) ==
[~2023-09-10] MED LIST changes: +APAP325T4 PO; +ATIV1TAB7 PO; +BISA10SU59 PR; +FINA-48 PO; +FLOM0.4C39 PO; +KEPP250T5 PO; +MILK24002 PO; +SENN-188 PO
== END ==
PROVIDERS: ATTEND Internal Medicine
DX: S60.221A Contusion of right hand, initial encounter (principal)

== ENCOUNTER → 2024-01-22 | Outpatient (CLI) | payer MEDICARE, BC ==
[~2024-01-22] MED LIST changes: +MEMA10TA PO; -MEMA10TA19 PO; -ROSU40TA4 PO; +ROSU40TA63 PO
== END ==
LOC: M RAD 11:41
PROVIDERS: ATTEND Family Medicine
DX: Z87.891 Personal history of nicotine dependence (principal); Z53.9 Procedure and treatment not carried out, unspecified reason